=== PATIENT | female | born 1935 | race Caucasian/White ===

== ENCOUNTER 2019-11-25 14:05 | Inpatient (IN) | payer MEDICARE ==
[2019-11-25 15:17] LABS: Anisocytosis Slight; Basophils % (A) 0 %; Eosinophils % (A) 0 %; HCT 27.7 % (34.0-46.0); HGB 8.6 gm/dL (11.4-16.0); Hypochromasia Marked; Lymphocytes # (A) 0.3 k/uL (1.0-4.8); Lymphocytes % (A) 4 %; MCH 34.2 pg (25.0-35.0); MCHC 30.9 g/dL (31.0-37.0); MCV 110.7 fL (80.0-100.0); Macrocytosis Marked; Mean Platelet Volume 8.1; Monocytes # (A) 0.3 k/uL (0-1.0); Monocytes % (A) 3 %; Neutrophils # (A) 8.3 k/uL (1.3-7.7); Neutrophils % (A) 92 %; Platelet Count 241 k/uL (150-450); RDW 16.8 % (11.5-15.5)
[2019-11-25 15:31] LABS: Albumin 2.7 g/dL (3.5-5.0); Calcium 8.4 mg/dL (8.4-10.2); Partial Thromboplastin Time 23.3 sec (22.0-30.0); Potassium 4.1 mmol/L (3.5-5.1); Prothrombin Time 10.6 sec (9.0-12.0); Total Bilirubin 0.8 mg/dL (0.2-1.3); Total Protein 5.3 g/dL (6.3-8.2)
--- NOTE | 2019-11-25 15:37 | XR ---
EXAMINATION TYPE: XR chest 2V DATE OF EXAM: 11/25/2019 COMPARISON: NONE HISTORY: Weakness and shortness of breath. Generalized pain. TECHNIQUE: Frontal and lateral views of the chest are obtained. FINDINGS: The osseous structures are demineralized. Underlying levoconvex scoliosis centered upper to mid thoracic spine. Background chronic emphysematou s and suspected parenchymal changes with reticular interstitial prominence bilaterally. Increased [place] left lung base and 2 views noted. Surgical clips bilateral axillary region. Cardiomegaly with at herosclerotic and ectatic thoracic aorta causing mass effect on trachea. IMPRESSION: Chronic changes and cardiomegaly with left lower lobe acute infiltrate thought present.
[2019-11-25 16:20] LABS: Amorphous Sediment,Urine Rare /hpf; Appearance,Urine Cloudy (Clear); Bacteria,Urine Moderate /hpf; Bilirubin,Urine Negative (Negative); Blood,Urine Negative (Negative); Color,Urine Yellow; Glucose,Urine (UA) Negative (Negative); Ketones,Urine Negative (Negative); Leukocyte Esterase,Urine Moderate (Negative); Nitrite,Urine Negative (Negative); PH, Urine 5.5 (5.0-8.0); Protein,Urine Negative (Negative); RBC,Urine 1 /hpf (0-5); Specific Gravity,Urine 1.014 (1.001-1.035); Squamous Epithelial Cell,Urine 1 /hpf (0-4); Urobilinogen,Urine <2.0 mg/dL (<2.0); WBC,Urine 23 /hpf (0-5)
[2019-11-25] MEDS ORDERED: ACETAMINOPHEN TAB 325 MG TAB PO STA (16:34)
--- NOTE | 2019-11-25 16:39 | ED ---
Weakness HPI - General Chief complaint: Weakness Stated complaint: altered mental Time Seen by Provider: 11/25/19 14:10 Source: EMS Mode of arrival: EMS - History of Present Illness Initial comments: The patient is an 84 old female past medical history of atrial fibrillation and pulmonary fibrosis who presents to the emergency department with reported generalized weakness and diffuse body aches. History is provided by EMS who state that the patient was taken into [facility] on Sunday from [facility]. She was evaluated for lower extremity swelling. She was found to have a DVT in her left leg and was placed on antegrade patient. She also had a CT of her chest which was negative for PE. She was returned to [facility] with additional diagnosis of pneumonia and placed on antibiotics. She reports that she didn't like the way she was being treated at the facility and therefore left yesterday AGAINST MEDICAL ADVICE and went home. Family states that she woke up this morning was warm weak and confused than normal. EMS report that the patient's baseline is the same as when they ran on her previously on Sunday. The patient is alert and oriented 3. Denies any trauma or falls. Admits to diffuse body aches which is chronic for her state she normally takes Tylenol for it. She does admit to feeling short of breath. The patient denies any chest pain, cough or hemoptysis. No abdominal pain. No changes in her bowel or bladder habits. There are no alleviating, precipitating or modifying factors - Related Data Home Medications Medication Instructions Recorded Confirmed Apixaban [Eliquis] 2.5 mg PO BID 11/25/19 11/25/19 Ipratropium-Albuterol Nebulize 3 ml INHALATION RT-Q4H PRN 11/25/19 11/25/19 [Duoneb 0.5 mg-3 mg/3 ml Soln] Metoprolol Tartrate 25 mg PO BID 11/25/19 11/25/19 Tamsulosin HCl [Flomax] 0.4 mg PO DAILY 11/25/19 11/25/19 Previous Rx's Medication Instructions Recorded Acetaminophen Tab [Tylenol] 650 mg PO Q6HR PRN tab 11/29/19 Amiodarone [Cordarone] 200 mg PO BID #60 tab 11/29/19 Lactulose [Cephulac] 20 gm PO DAILY PRN #0 ml 11/29/19 Magnesium Hydroxide [Milk of 2,400 mg PO DAILY PRN #100 ml 11/29/19 Magnesia Concentrate] Melatonin 3 mg PO HS PRN #15 tablet 11/29/19 Ondansetron HCl [Zofran] 4 mg PO Q8H PRN #25 tab 11/29/19 Allergies Allergy/AdvReac Type Severity Reaction Status Date / Time No Known Allergies Allergy Verified 11/25/19 16:47 Review of Systems ROS Statement: Those systems with pertinent positive or pertinent negative responses have been documented in the HPI. ROS Other: All systems not noted in ROS Statement are negative. Past Medical History Past Medical History: Atrial Fibrillation, Cancer Additional Past Medical History / Comment(s): pulmonary fibrosis History of Any Multi-Drug Resistant Organisms: None Reported Additional Past Surgical History / Comment(s): left mastectomy, left femur reduction. Past Psychological History: No Psychological Hx Reported Smoking Status: Never smoker Past Alcohol Use History: None Reported Past Drug Use History: None Reported - Past Family History Brother(s) Daughter(s) Additional Family Medical History / Comment(s): 2 brothers with pulmonary fibrosis and a sister with pulmonary fibrosis General Exam Limitations: altered mental status General appearance: alert, cachectic, other (fatigued) Head exam: Present: atraumatic, normocephalic, normal inspection Eye exam: Present: normal appearance, PERRL, EOMI. Absent: scleral icterus, conjunctival injection, periorbital swelling ENT exam: Present: mucous membranes dry Respiratory exam: Present: normal lung sounds bilaterally. Absent: respiratory distress, wheezes, rales, rhonchi, stridor Cardiovascular Exam: Present: tachycardia, irregular rhythm GI/Abdominal exam: Present: soft, normal bowel sounds. Absent: distended, tenderness, guarding, rebound, rigid Extremities exam: Present: normal inspection, full ROM, normal capillary refill. Absent: tenderness, pedal edema, joint swelling, calf tenderness Neurological exam: Present: alert, CN II-XII intact Psychiatric exam: Present: flat affect Skin exam: Present: warm, pallor Course Vital Signs 11/25/19 11/25/19 11/25/19 14:07 15:45 16:30 Temperature 97.3 F L Pulse Rate 134 H 120 H 138 H Respiratory 18 181 H 18 Rate Blood Pressure 101/79 102/87 104/76 O2 Sat by Pulse 100 100 Oximetry 11/25/19 11/25/19 11/25/19 18:22 18:36 18:53 Temperature 97.3 F L Pulse Rate 114 H 100 120 H Respiratory 18 18 18 Rate Blood Pressure 75/59 81/66 91/68 O2 Sat by Pulse 100 100 100 Oximetry 11/25/19 11/25/19 11/25/19 19:42 20:12 20:41 Temperature Pulse Rate 124 H 124 H 130 H Respiratory 18 16 18 Rate Blood Pressure 75/59 78/62 96/61 O2 Sat by Pulse 98 99 100 Oximetry 11/25/19 21:08 Temperature Pulse Rate 120 H Respiratory 18 Rate Blood Pressure 93/70 O2 Sat by Pulse 98 Oximetry EKG Findings - EKG Comments: EKG Findings:: EKG demonstrates age or fibrillation with a rapid ventricular response of 136. QRS 86. QTC 391. Inverted T-wave with depression in the 4 through V6. No old EKG available for comparison Medical Decision Making - Medical Decision Making Upon arrival the patient is placed into room 7. A thorough history and physical exam was performed. Per 5 is established. The patient was given a 250 mL bolus. Laboratory studies were conducted which demonstrated a hemoglobin of 8.6. Alk phos 193. BNP elevated at 11,800. Troponin is negative. Urinalysis shows moderate leukocyte Estrace, 23 white blood cells, moderate bacteria. Coronavirus is not detected. Chest x-ray demonstrates chronic changes and cardiomegaly with a left lower lobe acute infiltrate. No signs of fluid overload. Because of this I did provide the patient with additional [address] the patient's brain was performed because families reported confusion. No acute intracranial hemorrhage or midline shift. Mild to moderate diffuse cerebral atrophy. I did perform a CT the patient's chest with contrast as the patient was recently diagnosed DVT and is on anticoagulation however does report to worsening respiratory efforts. It does not demonstrate a sign for acute parenchymal is. It does demonstrate underlying emphysematous changes and there is now cardiomegaly with mild bilateral alveolar edema. Probable central obstructing intrahepatic mass concerning for neoplasm and severe left- sided hydronephrosis. Because of these results I did perform a CT without contrast the patient's abdomen which does demonstrate moderate to severe left- sided hydronephrosis. Cirrhotic liver with multifocal central neoplasm. I discussed the patient's results with her daughter who assists in her medical decision making. She reports that her is the next reported his power of district attorney however he is 89 years old and hard of hearing. They state that the patient is a full code at this time. I did discuss results with Dr. Ortega who accepted admission for the patient. I also discussed the case with Dr. ni because of the infected urine with severe Ulysses. He does evaluate the patient emergency department. The patient continues to have A. fib with RVR. I did attempt to place her on a low-dose of Cardizem however she did have a drop in her blood pressure. Because of this the Cardizem is removed. The patient is started on 75 mL of saline per hour does have improvement in her blood pressures. The patient's heart rate does improve to the 1 teens. She will be admitted to telemetry floor. The patient remained in stable condition was transported - Lab Data Result diagrams: 11/29/19 06:51 11/29/19 06:51 Lab Results 11/25/19 11/25/19 11/25/19 Range/Units 14:43 14:55 14:55 WBC 9.0 (3.8-10.6) k/uL RBC 2.50 L (3.80-5.40) m/uL Hgb 8.6 L (11.4-16.0) gm/dL Hct 27.7 L (34.0-46.0) % MCV 110.7 H (80.0-100.0) fL MCH 34.2 (25.0-35.0) pg MCHC 30.9 L (31.0-37.0) g/dL RDW 16.8 H (11.5-15.5) % Plt Count 241 (150-450) k/uL Neutrophils % 92 % Lymphocytes % 4 % Monocytes % 3 % Eosinophils % 0 % Basophils % 0 % Neutrophils # 8.3 H (1.3-7.7) k/uL Lymphocytes # 0.3 L (1.0-4.8) k/uL Monocytes # 0.3 (0-1.0) k/uL Eosinophils # 0.0 (0-0.7) k/uL Basophils # 0.0 (0-0.2) k/uL Hypochromasia Marked Anisocytosis Slight Macrocytosis Marked A PT 10.6 (9.0-12.0) sec INR 1.0 (<1.2) APTT 23.3 (22.0-30.0) sec Sodium (137-145) mmol/L Potassium (3.5-5.1) mmol/L Chloride (98-107) mmol/L Carbon Dioxide (22-30) mmol/L Anion Gap mmol/L BUN (7-17) mg/dL Creatinine (0.52-1.04) mg/dL Est GFR (CKD-EPI)AfAm (>60 ml/min/1.73 sqM) Est GFR (CKD-EPI)NonAf (>60 ml/min/1.73 sqM) Glucose (74-99) mg/dL Plasma Lactic Acid Angelo (0.7-2.0) mmol/L Calcium (8.4-10.2) mg/dL Magnesium (1.6-2.3) mg/dL Total Bilirubin (0.2-1.3) mg/dL AST (14-36) U/L ALT (4-34) U/L Alkaline Phosphatase (38-126) U/L Creatine Kinase (30-135) U/L Troponin I (0.000-0.034) ng/mL NT-Pro-B Natriuret Pep pg/mL Total Protein (6.3-8.2) g/dL Albumin (3.5-5.0) g/dL TSH (0.465-4.680) mIU/L Urine Color Yellow Urine Appearance Cloudy H (Clear) Urine pH 5.5 (5.0-8.0) Ur Specific [place]fall 1.014 (1.001-1.035) Urine Protein Negative (Negative) Urine Glucose (UA) Negative (Negative) Urine Ketones Negative (Negative) Urine Blood Negative (Negative) Urine Nitrite Negative (Negative) Urine Bilirubin Negative (Negative) Urine Urobilinogen <2.0 (<2.0) mg/dL Ur Leukocyte Esterase Moderate H (Negative) Urine RBC 1 (0-5) /hpf Urine WBC 23 H (0-5) /hpf Ur Squamous Epith Cells 1 (0-4) /hpf Amorphous Sediment Rare H (None) /hpf Urine Bacteria Moderate H (None) /hpf Coronavirus (PCR) (Not Detectd) 05/05/20 05/05/20 05/05/20 Range/Units 14:55 14:55 14:55 WBC (3.8-10.6) k/uL RBC (3.80-5.40) m/uL Hgb (11.4-16.0) gm/dL Hct (34.0-46.0) % MCV (80.0-100.0) fL MCH (25.0-35.0) pg MCHC (31.0-37.0) g/dL RDW (11.5-15.5) % Plt Count (150-450) k/uL Neutrophils % % Lymphocytes % % Monocytes % % Eosinophils % % Basophils % % Neutrophils # (1.3-7.7) k/uL Lymphocytes # (1.0-4.8) k/uL Monocytes # (0-1.0) k/uL Eosinophils # (0-0.7) k/uL Basophils # (0-0.2) k/uL Hypochromasia Anisocytosis Macrocytosis PT (9.0-12.0) sec INR (<1.2) APTT (22.0-30.0) sec Sodium 136 L (137-145) mmol/L Potassium 4.1 (3.5-5.1) mmol/L Chloride 99 (98-107) mmol/L Carbon Dioxide 32 H (22-30) mmol/L Anion Gap 5 mmol/L BUN 41 H (7-17) mg/dL Creatinine 1.12 H (0.52-1.04) mg/dL Est GFR (CKD-EPI)AfAm 52 (>60 ml/min/1.73 sqM) Est GFR (CKD-EPI)NonAf 46 (>60 ml/min/1.73 sqM) Glucose 79 (74-99) mg/dL Plasma Lactic Acid Angelo 1.1 (0.7-2.0) mmol/L Calcium 8.4 (8.4-10.2) mg/dL Magnesium 2.0 (1.6-2.3) mg/dL Total Bilirubin 0.8 (0.2-1.3) mg/dL AST 33 (14-36) U/L ALT 21 (4-34) U/L Alkaline Phosphatase 193 H (38-126) U/L Creatine Kinase (30-135) U/L Troponin I <0.012 (0.000-0.034) ng/mL NT-Pro-B Natriuret Pep pg/mL Total Protein 5.3 L (6.3-8.2) g/dL Albumin 2.7 L (3.5-5.0) g/dL TSH 7.950 H (0.465-4.680) mIU/L Urine Color Urine Appearance (Clear) Urine pH (5.0-8.0) Ur Specific [place] (1.001-1.035) Urine Protein (Negative) Urine Glucose (UA) (Negative) Urine Ketones (Negative) Urine Blood (Negative) Urine Nitrite (Negative) Urine Bilirubin (Negative) Urine Urobilinogen (<2.0) mg/dL Ur Leukocyte Esterase (Negative) Urine RBC (0-5) /hpf Urine WBC (0-5) /hpf Ur Squamous Epith Cells (0-4) /hpf Amorphous Sediment (None) /hpf Urine Bacteria (None) /hpf Coronavirus (PCR) (Not Detectd) 11/25/19 11/25/19 11/25/19 Range/Units 14:55 14:55 16:27 WBC (3.8-10.6) k/uL RBC (3.80-5.40) m/uL Hgb (11.4-16.0) gm/dL Hct (34.0-46.0) % MCV (80.0-100.0) fL MCH (25.0-35.0) pg MCHC (31.0-37.0) g/dL RDW (11.5-15.5) % Plt Count (150-450) k/uL Neutrophils % % Lymphocytes % % Monocytes % % Eosinophils % % Basophils % % Neutrophils # (1.3-7.7) k/uL Lymphocytes # (1.0-4.8) k/uL Monocytes # (0-1.0) k/uL Eosinophils # (0-0.7) k/uL Basophils # (0-0.2) k/uL Hypochromasia Anisocytosis Macrocytosis PT (9.0-12.0) sec INR (<1.2) APTT (22.0-30.0) sec Sodium (137-145) mmol/L Potassium (3.5-5.1) mmol/L Chloride (98-107) mmol/L Carbon Dioxide (22-30) mmol/L Anion Gap mmol/L BUN (7-17) mg/dL Creatinine (0.52-1.04) mg/dL Est GFR (CKD-EPI)AfAm (>60 ml/min/1.73 sqM) Est GFR (CKD-EPI)NonAf (>60 ml/min/1.73 sqM) Glucose (74-99) mg/dL Plasma Lactic Acid Angelo (0.7-2.0) mmol/L Calcium (8.4-10.2) mg/dL Magnesium (1.6-2.3) mg/dL Total Bilirubin (0.2-1.3) mg/dL AST (14-36) U/L ALT (4-34) U/L Alkaline Phosphatase (38-126) U/L Creatine Kinase <20 L (30-135) U/L Troponin I (0.000-0.034) ng/mL NT-Pro-B Natriuret Pep 46187 pg/mL Total Protein (6.3-8.2) g/dL Albumin (3.5-5.0) g/dL TSH (0.465-4.680) mIU/L Urine Color Urine Appearance (Clear) Urine pH (5.0-8.0) Ur Specific [place]fall (1.001-1.035) Urine Protein (Negative) Urine Glucose (UA) (Negative) Urine Ketones (Negative) Urine Blood (Negative) Urine Nitrite (Negative) Urine Bilirubin (Negative) Urine Urobilinogen (<2.0) mg/dL Ur Leukocyte Esterase (Negative) Urine RBC (0-5) /hpf Urine WBC (0-5) /hpf Ur Squamous Epith Cells (0-4) /hpf Amorphous Sediment (None) /hpf Urine Bacteria (None) /hpf Coronavirus (PCR) Not Detected (Not Detectd) Disposition Clinical Impression: Atrial fibrillation with RVR, Generalized weakness, HCAP (healthcare-associated pneumonia), DVT (deep venous thrombosis), Respiratory insufficiency, CHF (congestive heart failure), Liver mass, Hydronephrosis Disposition[facility] Condition: Stable Is patient prescribed a controlled substance at d/c from ED?: No Decision to Admit Reason: Admit from EC Decision Date: 11/25/19 Decision Time: 17:16
--- NOTE | 2019-11-25 16:41 | CT ---
EXAMINATION TYPE: CT brain wo con DATE OF EXAM: 11/25/2019 HISTORY: Weakness, body aches CT DLP: 1139 mGycm. Automated Exposure Control for Dose Reduction was Utilized. TECHNIQUE: CT scan of the head is performed without contrast. COMPARISON: None. FINDINGS: There is no acute intracranial hemorrhage or midline shift identified. There is diffuse v entricular and sulcal prominence consistent with diffuse age-related cerebral atrophy. There is low- attenuation in the periventricular white matter consistent with chronic small vessel ischemic change. 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 The globes are intact and the vis ualized sinuses are clear. IMPRESSION: No acute intracranial hemorrhage or midline shift. There is mild to moderate diffuse ce rebral atrophy and moderate chronic small vessel ischemic change noted.
--- NOTE | 2019-11-25 16:52 | CT ---
EXAMINATION TYPE: CT angio chest DATE OF EXAM: 11/25/2019 COMPARISON: Chest x-ray earlier today HISTORY: Weakness, body aches CT DLP: 213.2 mGycm. Automated Exposure Control for Dose Reduction was Utilized. CONTRAST: CTA scan of the thorax is performed with IV Contrast, patient injected with 80 mL of Isovue 370, pulm onary embolism protocol. MIP Images are created on CT scanner and reviewed. FINDINGS: LUNGS: Background fairly moderate underlying chronic emphysematous change with elevated left hemidiap hragm. Small bilateral pleural effusions noted on CT less well seen on x-ray earlier today. Some cent ral groundglass opacity is felt to reflect mild underlying alveolar edema. Patchy left basilar compre ssive atelectasis is felt present. No pneumothorax bilaterally. MEDIASTINUM: There is satisfactory enhancement of the pulmonary artery and its branches, there is no CT evidence for pulmonary embolism. There are no greater than 1 cm hilar or mediastinal lymph nodes . No significant pericardial effusion is seen. Cardiomegaly with moderate to severe biatrial dilata tion. Reflux of contrast into suprahepatic IVC and draining hepatic veins suggests degree of right he art failure. Enlarged main pulmonary artery at 3.3 cm axial image 62 is felt to reflect product of un derlying pulmonary artery hypertension. OTHER: Demineralization with S-shaped scoliosis. Fairly moderate compression type fracture of L1 leve l. Visualized upper abdomen shows small amount of abdominal ascites perihepatic and perisplenic level . Visualized liver is prominent with suggestion of central irregular heterogeneous mass towards the h ilum there are axial image 140. Mild to moderate peripheral biliary dilatation is felt present. Suspe ct moderate to severe left-sided hydronephrosis partially imaged. Patient has virtually no breast tis rosanne. IMPRESSION: 1. No CT evidence for acute pulmonary embolism. 2. Fairly moderate underlying emphysematous change. Suspect CHF exacerbation and there is cardiomegal y with mild bilateral alveolar edema and small bilateral pleural effusions. Correlate clinically. 3. Probable central obstructing intrahepatic mass causing mild to moderate intrahepatic biliary dilat ation. Mild upper abdominal ascites. Correlate clinically. Neoplasm suspected. Further investigation with multiphase contrast-enhanced CT is advised. 4. Suspect moderate to severe left-sided hydronephrosis. Correlate clinically.
[2019-11-25] MEDS ORDERED: cefTRIAXone IN SWFI 1,000 MG/10 ML SYRINGE IVP STA (17:07)
[2019-11-25] MEDS ORDERED: AZITHROMYCIN 500 MG in SODIUM CHLORIDE 0.9% 250 ML IVPB STA (17:15)
[2019-11-25] MEDS ORDERED: DILTIAZEM 125 MG in SODIUM CHLORIDE 0.9% 100 ML IV SCH (17:15)
[2019-11-25] MEDS ORDERED: NALOXONE 0.4 MG/ML 1 ML VIAL IV PRN (17:20)
[2019-11-25] MEDS ORDERED: IPRATROPIUM-ALBUTEROL 3 ML NEB INHALATION PRN (17:26)
--- NOTE | 2019-11-25 18:31 | CT ---
EXAMINATION TYPE: CT abdomen pelvis wo con DATE OF EXAM: 11/25/2019 HISTORY: Hydronephrosis, liver lesion. Abnormal CT. CT DLP: 387.9 mGycm. Automated Exposure Control for Dose Reduction was Utilized. TECHNIQUE: CT scan of the abdomen and pelvis is performed without oral or IV contrast. COMPARISON: CTA chest earlier today FINDINGS: Within the limitations of a non-contrast study, the following observations are made. LUNG BASES: Please refer to same day CTA chest report for complete details about the lung bases. LIVER/GB: Liver has lobulated peripheral nodular contour suggesting underlying cirrhosis. Mild to mod erate left-sided extra hepatic biliary dilatation with overall heterogeneity in at least small intrah epatic hypodense masses suspected right hepatic lobe near maximum image 23. Suspect obstructing centr al intrahepatic mass causing left-sided biliary dilatation. Roughly 1.5 cm calcification near clotilde h epatis of uncertain etiology as gallbladder not identified. Common bile duct mildly dilated at 12 to 13 mm coronal image 46 just before the ampulla. Some central biliary heterogeneous hypodense tissue s uspicious for tumor coronal image 46 seen proximal to this. PANCREAS: No significant abnormality is seen. SPLEEN: No significant abnormality is seen. ADRENALS: No significant abnormality is seen. KIDNEYS: Excretion right kidney from recent CTA chest study. Absent excretion left kidney with modera te to severe hydronephrosis and hydroureter up to distal ureter level where there is abrupt change ne ar axial image 53 and 54 without obstructing stone seen. BOWEL: Suboptimal evaluation bowel without enteric contrast. Stomach poorly distended and thus subopt imally evaluated. No suspicious small or large bowel dilatation. Sigmoid colonic diverticulosis. GENITAL ORGANS: Anteverted uterus. Small to moderate amount of free fluid in pelvis axial image 61 fo r reference. LYMPH NODES: No greater than 1cm abdominal or pelvic lymph nodes are appreciated. OSSEOUS STRUCTURES: Metallic hardware left proximal femur level is partially imaged. Moderate to tamara re joint space loss in both hips. Demineralization is present. Levoconvex scoliosis. Moderate to tamara re chronic compression type fracture L1 level. Mild Chronic compression fracture L3 level. Severe dis c space narrowing lumbosacral junction. Multilevel facet arthropathy mid to lower lumbar spine. OTHER: Mild abdominal and mesenteric ascites. Atherosclerotic ectatic abdominal aorta. 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 Confirmation of moderate to severe left-sided hydronephrosis. Absent excretion left kidney noted. Etiology uncertain as there is abrupt transition from moderate to severe hydroureter or distal ureter level without obstructing stone clearly seen. Further workup is advised. 2. Suspected cirrhotic liver with multifocal central neoplasm causing left-sided biliary dilatation. Primary biliary carcinoma should be considered. Further workup advised.
[2019-11-25] MEDS ORDERED: SODIUM CHLORIDE 0.9% 250 ML IV SCH (19:00)
[2019-11-25] MEDS ORDERED: SODIUM CHLORIDE 0.9% 500 ML 500 ML IV ONE (20:37)
[2019-11-25] MEDS ORDERED: NA PHOS,M-B/NA PHOS,DI-BA 133 ML ENEMA RECTAL PRN (20:46)
[2019-11-25] MEDS ORDERED: CALCIUM CARBONATE 500 MG CHEWABLE PO PRN (20:46)
[2019-11-25] MEDS ORDERED: LACTULOSE 20 GM/30 ML CUP PO PRN (20:46)
[2019-11-25] MEDS ORDERED: ONDANSETRON 4 MG/2 ML VIAL IVP PRN (20:46)
[2019-11-25] MEDS ORDERED: MAGNESIUM HYDROXIDE 2,400 MG/10 ML CUP PO PRN (20:46)
--- NOTE | 2019-11-25 20:50 | P.GSCN ---
History of Present Illness Consult date: 11/25/19 Reason for Consult: Left hydroureteronephrosis History of present illness: the patient is an 84-year-old female who was taken to the emergency room for evaluation by her family due to increasing weakness. The history is from a discussion with the patient and her emergency room physician. The [facility] to increasing weakness. She apparently had a deep venous thrombosis involving one of her legs and has been anticoagulated. She also recently developed a pneumonia. She says she's had a poor appetite for weeks. Her main complaint is aching per which is present in her arms, legs and abdomen. she denies any specific abdominal or flank pain. She has noted no recent change in her voiding pattern. She has had intermittent incontinence over the last month and says that she's been in diapers for the last 2 weeks. She denies any dysuria or gross hematuria. She does not have a history of recurrent urinary tract infection or urolithiasis. When seen in the emergency room she was noted to have a white blood count of 9000. BUN/creatinine were 41/1.12. Her urinalysis showed 23 white cells 1 red cells and moderate bacteria. It was negative for nitrite. Computed tomography scan of the abdomen and pelvis with IV contrast showed a normally functioning right kidney. The left kidney showed no excretion and the left renal pelvis and ureter were dilated down to the region of the pelvic brim. No calculus was noted at that location. There was also evidence of cirrhosis and possible tumors within the liver. I was asked to see the patient due to the hydronephrosis. The patient has no previous imaging of her kidneys done at this hospital. She has not had any previous abdominal surgeries. Review of Systems - Constitutional Reports chronic pain, Reports fatigue, Reports poor appetite, Reports weakness, Reports weight loss, Denies chills, Denies fever - Cardiovascular Reports irregular heart beat, Denies high blood pressure - Respiratory Denies cough - Gastrointestinal Reports as per HPI, Denies change in bowel habits, Denies vomiting - Genitourinary Genitourinary: Reports urge incontinence, Denies dysuria, Denies hematuria Past Medical History Past Medical History: Atrial Fibrillation, Cancer (left breast 30 years ago) Additional Past Medical History / Comment(s): pulmonary fibrosis History of Any Multi-Drug Resistant Organisms: None Reported Additional Past Surgical History / Comment(s): left mastectomy, left femur reduction. Past Psychological History: No Psychological Hx Reported Smoking Status: Never smoker Past Alcohol Use History: None Reported Past Drug Use History: None Reported - Past Family History Brother(s) Daughter(s) Additional Family Medical History / Comment(s): 2 brothers with pulmonary fibrosis and a sister with pulmonary fibrosis Medications and Allergies Home Medications Medication Instructions Recorded Confirmed Type Apixaban [Eliquis] 2.5 mg PO BID 11/25/19 11/25/19 History Diltiazem HCl [Diltiazem HCl 24Hr 180 mg PO DAILY 11/25/19 11/25/19 History ER (CD)] Furosemide [Lasix] 20 mg PO DAILY 11/25/19 11/25/19 History Ipratropium-Albuterol Nebulize 3 ml INHALATION RT-Q4H PRN 11/25/19 11/25/19 His tory [Duoneb 0.5 mg-3 mg/3 ml Soln] Metoprolol Tartrate 25 mg PO BID 11/25/19 11/25/19 History Potassium Chloride ER [K-Dur 10] 10 meq PO DAILY 11/25/19 11/25/19 History Tamsulosin HCl [Flomax] 0.4 mg PO DAILY 11/25/19 11/25/19 History Allergies Allergy/AdvReac Type Severity Reaction Status Date / Time No Known Allergies Allergy Verified 11/25/19 16:47 Surgical - Exam Vital Signs Temp Pulse Resp BP 97.3 F L 134 H 18 101/79 11/25/19 14:07 11/25/19 14:07 11/25/19 14:07 11/25/19 14:07 - General well developed, moderate distress, cachectic, chronically ill - ENT no hearing loss - Neck no masses, no lymphadectomy - Abdomen Abdomen: soft, non tender, no organomegaly Hernia: none - Genitourinary normal external genitalia Results - Labs 11/25/19 14:55 11/25/19 14:55 Abnormal Lab Results - Last 24 Hours (Table) 11/25/19 11/25/19 11/25/19 Range/Units 14:43 14:55 14:55 RBC 2.50 L (3.80-5.40) m/uL Hgb 8.6 L (11.4-16.0) gm/dL Hct 27.7 L (34.0-46.0) % MCV 110.7 H (80.0-100.0) fL MCHC 30.9 L (31.0-37.0) g/dL RDW 16.8 H (11.5-15.5) % Neutrophils # 8.3 H (1.3-7.7) k/uL Lymphocytes # 0.3 L (1.0-4.8) k/uL Macrocytosis Marked A Sodium 136 L (137-145) mmol/L Carbon Dioxide 32 H (22-30) mmol/L BUN 41 H (7-17) mg/dL Creatinine 1.12 H (0.52-1.04) mg/dL Alkaline Phosphatase 193 H (38-126) U/L Creatine Kinase (30-135) U/L Total Protein 5.3 L (6.3-8.2) g/dL Albumin 2.7 L (3.5-5.0) g/dL TSH 7.950 H (0.465-4.680) mIU/L Urine Appearance Cloudy H (Clear) Ur Leukocyte Esterase Moderate H (Negative) Urine WBC 23 H (0-5) /hpf Amorphous Sediment Rare H (None) /hpf Urine Bacteria Moderate H (None) /hpf 05/05/20 Range/Units 14:55 RBC (3.80-5.40) m/uL Hgb (11.4-16.0) gm/dL Hct (34.0-46.0) % MCV (80.0-100.0) fL MCHC (31.0-37.0) g/dL RDW (11.5-15.5) % Neutrophils # (1.3-7.7) k/uL Lymphocytes # (1.0-4.8) k/uL Macrocytosis Sodium (137-145) mmol/L Carbon Dioxide (22-30) mmol/L BUN (7-17) mg/dL Creatinine (0.52-1.04) mg/dL Alkaline Phosphatase (38-126) U/L Creatine Kinase <20 L (30-135) U/L Total Protein (6.3-8.2) g/dL Albumin (3.5-5.0) g/dL TSH (0.465-4.680) mIU/L Urine Appearance (Clear) Ur Leukocyte Esterase (Negative) Urine WBC (0-5) /hpf Amorphous Sediment (None) /hpf Urine Bacteria (None) /hpf Diabetes panel 11/25/19 Range/Units 14:55 Sodium 136 L (137-145) mmol/L Potassium 4.1 (3.5-5.1) mmol/L Chloride 99 (98-107) mmol/L Carbon Dioxide 32 H (22-30) mmol/L BUN 41 H (7-17) mg/dL Creatinine 1.12 H (0.52-1.04) mg/dL Glucose 79 (74-99) mg/dL Calcium 8.4 (8.4-10.2) mg/dL AST 33 (14-36) U/L ALT 21 (4-34) U/L Alkaline Phosphatase 193 H (38-126) U/L Total Protein 5.3 L (6.3-8.2) g/dL Albumin 2.7 L (3.5-5.0) g/dL Thyroid panel 11/25/19 Range/Units 14:55 TSH 7.950 H (0.465-4.680) mIU/L Calcium panel 11/25/19 Range/Units 14:55 Calcium 8.4 (8.4-10.2) mg/dL Albumin 2.7 L (3.5-5.0) g/dL Pituitary panel 11/25/19 Range/Units 14:55 Sodium 136 L (137-145) mmol/L Potassium 4.1 (3.5-5.1) mmol/L Chloride 99 (98-107) mmol/L Carbon Dioxide 32 H (22-30) mmol/L BUN 41 H (7-17) mg/dL Creatinine 1.12 H (0.52-1.04) mg/dL Glucose 79 (74-99) mg/dL Calcium 8.4 (8.4-10.2) mg/dL TSH 7.950 H (0.465-4.680) mIU/L Adrenal panel 11/25/19 Range/Units 14:55 Sodium 136 L (137-145) mmol/L Potassium 4.1 (3.5-5.1) mmol/L Chloride 99 (98-107) mmol/L Carbon Dioxide 32 H (22-30) mmol/L BUN 41 H (7-17) mg/dL Creatinine 1.12 H (0.52-1.04) mg/dL Glucose 79 (74-99) mg/dL Calcium 8.4 (8.4-10.2) mg/dL Total Bilirubin 0.8 (0.2-1.3) mg/dL AST 33 (14-36) U/L ALT 21 (4-34) U/L Alkaline Phosphatase 193 H (38-126) U/L Total Protein 5.3 L (6.3-8.2) g/dL Albumin 2.7 L (3.5-5.0) g/dL Assessment and Plan (1) Hydroureteronephrosis Narrative/Plan: The source of the patient's left hydroureteronephrosis is unclear. I personally reviewed her computed tomography scan of the abdomen and pelvis. There is moderate to severe dilation of the left ureter down to the region of the pelvic brim but there is no evidence of calculus in this location. This may be chronic. It is possible that the ureter is obstructed due to an extrinsic cause. The patient may have hepatic metastasis or a primary hepatic malignancy and it is possible that the left ureteral obstruction is somehow related to this. The patient's renal function is fairly well preserved and I do not feel that she has a urinary tract infection at this time. She has no specific left-sided abdominal pain and in view of her age and general debilitated condition I'm not sure that proceeding with cystoscopy and left retrograde is indicated as it is unlikely that she would tolerate any abdominal surgery if extrinsic compression of the ureter from a mass was confirmed. I will try and contact her personal physician tomorrow and see if he has any previous imaging of the abdomen for comparison. Current Visit: Yes Status: Acute Code(s): N13.30 - UNSPECIFIED HYDRONEPHROSIS SNOMED Code(s): 64800841
[2019-11-25] MEDS: ACETAMINOPHEN TAB 325 MG TAB PO PRN (21:41)
[2019-11-25] MEDS: METOPROLOL TARTRATE 25 MG TAB PO SCH (21:42)
[2019-11-25] MEDS: APIXABAN 2.5 MG TABLET PO SCH (21:42)
[2019-11-25] MEDS: SODIUM CHLORIDE 0.9% 1,000 ML IV SCH (21:42)
[2019-11-26 03:36] LABS: Anisocytosis Slight; Basophils % (A) 0 %; Eosinophils % (A) 0 %; HCT 23.2 % (34.0-46.0); Hypochromasia Marked; Lymphocytes # (A) 0.3 k/uL (1.0-4.8); Lymphocytes % (A) 4 %; MCH 34.1 pg (25.0-35.0); MCHC 30.6 g/dL (31.0-37.0); MCV 111.6 fL (80.0-100.0); Mean Platelet Volume 7.9; Monocytes # (A) 0.3 k/uL (0-1.0); Monocytes % (A) 4 %; Neutrophils # (A) 6.6 k/uL (1.3-7.7); Neutrophils % (A) 92 %; Platelet Count 189 k/uL (150-450); RBC 2.08 m/uL (3.80-5.40); RDW 17.2 % (11.5-15.5); WBC 7.2 k/uL (3.8-10.6)
[2019-11-26 03:37] LABS: HGB 7.1 gm/dL (11.4-16.0)
[2019-11-26 03:38] LABS: Macrocytosis Marked
[2019-11-26 03:47] LABS: Calcium 7.4 mg/dL (8.4-10.2)
[2019-11-26 04:37] LABS: Potassium 4.1 mmol/L (3.5-5.1)
[2019-11-26] MEDS: ACETAMINOPHEN TAB 325 MG TAB PO PRN ×2 (04:40→17:49)
[2019-11-26 06:34] LABS: Anisocytosis Slight; HCT 22.7 % (34.0-46.0); Hypochromasia Marked; MCH 34.4 pg (25.0-35.0); MCV 111.1 fL (80.0-100.0); Mean Platelet Volume 7.5; Platelet Count 202 k/uL (150-450); RBC 2.04 m/uL (3.80-5.40); RDW 17.2 % (11.5-15.5); WBC 8.4 k/uL (3.8-10.6)
[2019-11-26 06:41] LABS: Macrocytosis Marked
[2019-11-26] MEDS ORDERED: TAMSULOSIN 0.4 MG CAP.ER.24H PO SCH (09:00)
[2019-11-26] MEDS ORDERED: POTASSIUM CHLORIDE ER 10 MEQ TAB.ER.PRT PO SCH (09:00)
[2019-11-26] MEDS: SODIUM CHLORIDE 0.9% 1,000 ML IV SCH ×2 (10:58→17:51)
[2019-11-26] MEDS: METOPROLOL TARTRATE 25 MG TAB PO SCH ×3 (12:37→21:15)
[2019-11-26] MEDS: APIXABAN 2.5 MG TABLET PO SCH ×2 (12:37→21:15)
--- NOTE | 2019-11-26 13:57 | P.CRDCN ---
History of Present Illness History of present illness: This is Lily Cortez PA-C scribing on behalf of Dr. Sharma The patient was interviewed and examined by Dr. Sharma ER notes reviewed HPI Patient is an 84-year-old female with a history significant for atrial fibrillation who presented with complaints of generalized weakness and body aches. Patient was apparently recently taken to [facility] on Sunday from [facility] where she was found to have a DVT and pneumonia. According to the note, CT PE was negative. She apparently left the facility AGAINST MEDICAL ADVICE and went home. Family reports she woke up more weak and confused brought her in again for evaluation. Vital signs upon arrival patient is afebrile, puls e in the 130s, blood pressure 101/79, respirations 18, oxygen saturation 100% on 2 L nasal cannula. EKG upon arrival shows atrial fibrillation with RVR, rate 136, T-wave inversions laterally and inferiorly. Chest x-ray shows chronic changes with left lower lobe acute infiltrate. Brain CT shows no acute intracranial hemorrhage or midline shift, mild to moderate diffuse cerebral atrophy and moderate chronic small vessel ischemic change. Chest CT shows no evidence for PE, underlying emphysematous change, mild bilateral alveolar edema and small bilateral pleural effusions, central obstructing intrahepatic mass, moderate to severe left-sided hydronephrosis. CT of the abdomen and pelvis confirms moderate to severe left-sided hydronephrosis, no obstructing stone clearly seen, cirrhotic liver with multifocal central neoplasm causing left- sided biliary dilatation. Troponin negative 3, BNP 11,800, TSH 7.9. Patient was started on Cardizem drip for atrial fibrillation with RVR however she became hypotensive therefore it was stopped. She remains in atrial fibrillation with rates in the 100s. She is lying in bed flat comfortably. ROS: No fevers, chills or rigors, no cough, phlegm or expectoration, no nausea, vomiting or diarrhea, no hematuria, dysuria, Positive for body aches no strokes or seizures, no skin lesions. EXAMINATION: Patient is afebrile, pulse in the 90s- 100s, respirations 19, blood pressure 97/74, oxygen saturation 90% on [address] Sharma examined the patient Patient is lying flat comfortably, in no acute distress Lung exam reveals crackles at the right base heart irregular no JVD no edema REVIEW OF LABS, ECG & MEDICAL DATA WBC 8.4, hemoglobin 7.0, platelets 202, potassium 4.1, BUN 38, creatinine 0.95 Troponin negative 3 BNP 11,800 TSH 7.95 Coronavirus not detected IMPRESSION / ASSESSMENT: #1 complaints of generalized weakness and body aches #2 atrial fibrillation with RVR, rates in the 100s, anticoagulated with eliquis #3 shortness of breath, mild pulmonary edema and small left pleural effusions on chest CT, elevated BNP, possible mild CHF, clinically she is able to lie flat comfortably #4 recently diagnosed DVT, on anticoagulation with eliquis #5 left-sided hydronephrosis #6 hepatic mass #7 left lower lobe pneumonia, on antibiotics #8 anemia #9 abnormal TSH PLAN: Obtain 2-D echo and Doppler studies to assess cardiac structure and function Increase metoprolol to 25 mg 3 times a day for rate control hold off on lasix as the patient has been hypotensive Further recommendations to follow based on the clinical course Past Medical History Past Medical History: Atrial Fibrillation, Cancer Additional Past Medical History / Comment(s): pulmonary fibrosis History of Any Multi-Drug Resistant Organisms: None Reported Additional Past Surgical History / Comment(s): left mastectomy, left femur reduction. Past Anesthesia/Blood Transfusion Reactions: No Reported Reaction Past Psychological History: No Psychological Hx Reported Smoking Status: Never smoker Past Alcohol Use History: None Reported Past Drug Use History: None Reported - Past Family History Brother(s) Daughter(s) Additional Family Medical History / Comment(s): 2 brothers with pulmonary fibrosis and a sister with pulmonary fibrosis Medications and Allergies Home Medications Medication Instructions Recorded Confirmed Type Apixaban [Eliquis] 2.5 mg PO BID 11/25/19 11/25/19 History Diltiazem HCl [Diltiazem HCl 24Hr 180 mg PO DAILY 11/25/19 11/25/19 History ER (CD)] Furosemide [Lasix] 20 mg PO DAILY 11/25/19 11/25/19 History Ipratropium-Albuterol Nebulize 3 ml INHALATION RT-Q4H PRN 11/25/19 11/25/19 History [Duoneb 0.5 mg-3 mg/3 ml Soln] Metoprolol Tartrate 25 mg PO BID 11/25/19 11/25/19 History Potassium Chloride ER [K-Dur 10] 10 meq PO DAILY 11/25/19 11/25/19 History Tamsulosin HCl [Flomax] 0.4 mg PO DAILY 11/25/19 11/25/19 History Allergies Allergy/AdvReac Type Severity Reaction Status Date / Time No Known Allergies Allergy Verified 11/25/19 16:47 Physical Exam Vitals: Vital Signs Temp Pulse Pulse Resp BP BP Pulse Ox 11/26/19 04:00 97.9 F 99 19 97/74 100 11/26/19 00:00 97.9 F 97 19 103/61 100 11/25/19 21:08 120 H 18 93/70 98 11/25/19 20:41 130 H 18 96/61 100 11/25/19 20:12 124 H 16 78/62 99 11/25/19 19:42 124 H 18 75/59 98 11/25/19 18:53 120 H 18 91/68 100 11/25/19 18:36 100 18 81/66 100 11/25/19 18:22 97.3 F L 114 H 18 75/59 100 11/25/19 16:30 138 H 18 104/76 100 11/25/19 15:45 120 H 181 H 102/87 100 11/25/19 14:07 97.3 F L 134 H 18 101/79 Intake and Output 11/25/19 11/26/19 11/26/19 22:59 06:59 14:59 Intake Total 7.083 120 Balance 7.083 120 Intake: Intake, IV Titration 7.083 Amount Diltiazem 125 mg In 7.083 Sodium Chloride 0.9% 100 ml @ 5 MG/HR 5 mls/hr IV .Q24H [facility] Rx#:[id number] Oral 120 Other: # Voids 2 1 Weight 47.627 kg 48.5 kg Results 11/26/19 06:05 11/26/19 02:16 Cardiac Enzymes 11/25/19 11/25/19 11/25/19 Range/Units 14:55 14:55 20:43 AST 33 (14-36) U/L Troponin I <0.012 <0.012 (0.000-0.034) ng/mL 11/26/19 Range/Units 02:16 AST (14-36) U/L Troponin I <0.012 (0.000-0.034) ng/mL Coagulation 11/25/19 Range/Units 14:55 PT 10.6 (9.0-12.0) sec APTT 23.3 (22.0-30.0) sec CBC 11/25/19 11/26/19 11/26/19 Range/Units 14:55 02:16 06:05 WBC 9.0 7.2 8.4 (3.8-10.6) k/uL RBC 2.50 L 2.08 L 2.04 L (3.80-5.40) m/uL Hgb 8.6 L 7.1 L D 7.0 L (11.4-16.0) gm/dL Hct 27.7 L 23.2 L 22.7 L (34.0-46.0) % Plt Count 241 189 202 (150-450) k/uL Comprehensive Metabolic Panel 11/25/19 11/26/19 Range/Units 14:55 02:16 Sodium 136 L 136 L (137-145) mmol/L Potassium 4.1 4.1 (3.5-5.1) mmol/L Chloride 99 105 (98-107) mmol/L Carbon Dioxide 32 H 26 (22-30) mmol/L BUN 41 H 38 H (7-17) mg/dL Creatinine 1.12 H 0.95 (0.52-1.04) mg/dL Glucose 79 67 L (74-99) mg/dL Calcium 8.4 7.4 L (8.4-10.2) mg/dL AST 33 (14-36) U/L ALT 21 (4-34) U/L Alkaline Phosphatase 193 H (38-126) U/L Total Protein 5.3 L (6.3-8.2) g/dL Albumin 2.7 L (3.5-5.0) g/dL Current Medications Generic Name Dose Route Start Last Admin Trade Name Freq PRN Reason Stop Dose Admin Acetaminophen 650 mg 11/25/19 17:20 11/26/19 04:40 Tylenol Tab PO 650 mg Q6HR PRN Administration Mild Pain or Fever > 100.5 Albuterol/Ipratropium 3 ml 11/25/19 17:26 Duoneb 0.5 Mg-3 Mg/3 Ml Soln INHALATION RT-Q4H PRN Shortness Of Breath Apixaban 2.5 mg 11/25/19 21:00 11/25/19 21:42 Eliquis PO 2.5 mg BID SONYA Administration Calcium Carbonate/Glycine 1,000 mg 11/25/19 20:46 Tums PO Q4HR PRN Dyspepsia Sodium Chloride 1,000 mls @ 100 mls/hr 11/25/19 20:45 11/25/19 21:42 Saline 0.9% IV 100 mls/hr .Q10H SONYA Administration Lactulose 20 gm 11/25/19 20:46 Cephulac PO DAILY PRN Constipation Magnesium Hydroxide 2,400 mg 11/25/19 20:46 Milk Of Magnesia PO DAILY PRN Constipation Melatonin 3 mg 11/25/19 20:46 Melatonin PO HS PRN Insomnia Metoprolol Tartrate 25 mg 11/25/19 21:00 11/25/19 21:42 Lopressor PO 25 mg BID SONYA Administration Naloxone HCl 0.2 mg 11/25/19 17:20 Narcan IV Q2M PRN Opioid Reversal Ondansetron HCl 4 mg 11/25/19 20:46 Zofran IVP Q8HR PRN Nausea And Vomiting Sodium Biphosphate/Sodium Phosphate 133 ml 11/25/19 20:46 Fleet Adult RECTAL ONCE PRN Constipation Intake and Output 11/25/19 11/26/19 11/26/19 22:59 06:59 14:59 Intake Total 7.083 120 Balance 7.083 120 Intake: Intake, IV Titration 7.083 Amount Diltiazem 125 mg In 7.083 Sodium Chloride 0.9% 100 ml @ 5 MG/HR 5 mls/hr IV .Q24H S[facility] Rx#:[id number] Oral 120 Other: # Voids 2 1 Weight 47.627 kg 48.5 kg 11/26/19 06:05 11/26/19 02:16
--- NOTE | 2019-11-26 21:08 | P.HPIM ---
History of Present Illness H&P Date: 11/26/19 Chief Complaint: Weakness History of presenting complaint: ER physician notes: The patient is an 84 old female past medical history of atrial fibrillation and pulmonary fibrosis who presents to the emergency department with reported generalized weakness and diffuse body aches. History is provided by EMS who state that the patient was taken into [facility] on Sunday from [facility]. She was evaluated for lower extremity swelling. She was found to have a DVT in her left leg and was placed on antegrade patient. She also had a CT of her chest which was negative for PE. She was returned to [facility] with additional diagnosis of pneumonia and placed on antibiotics. She reports that she didn't like the way she was being treated at the facility and therefore left yesterday AGAINST MEDICAL ADVICE and went home. Family states that she woke up this morning was warm weak and confused than normal. EMS report that the patient's baseline is the same as when they ran on her previously on Sunday. The patient is alert and oriented 3. Denies any trauma or falls. Admits to diffuse body aches which is chronic for her state she normally takes Tylenol for it. She does admit to feeling short of breath. The patient denies any chest pain, cough or hemoptysis. No abdominal pain. No changes in her bowel or bladder habits. There are no alleviating, precipitating or modifying factors. Today-patient somewhat sketchy about the history. Says that she been feeling short of breath. A bit weak. Appetite is good. Minimal cough. Review of systems: GEN.: Tired, denies fever or chills EYES: None HEENT: None NECK: None RESPIRATORY: Some shortness of breath. Slight cough. No sputum. CARDIOVASCULAR: None GASTROINTESTINAL: None GENITOURINARY: None MUSCULOSKELETAL: Some joint pains LYMPHATICS: None HEMATOLOGICAL: None PSYCHIATRY: But forgetful NEUROLOGICAL: None Past no history to include: Atrial fibrillation, pulmonary fibrosis, breast cancer Social history: Denies smoking, or alcohol. Family history: 2 brothers and one sister all had pulmonary fibrosis Physical examination: VITAL SIGNS: 97.3, 114, 18, 75/59, 100% on 2 L-upon presentation GENERAL: BMI 20.9, laying in bed, awake tired. EYES: Pupils equal. Conjunctiva palel. HEENT: External appearance of nose and ears normal, oral cavity grossly normal. NECK: JVD not raised; masses not palpable. HEART: First and second heart sounds are normal; no edema. LUNGS: Respiratory rate normal; decreased breath sounds. ABDOMEN: Soft, nontender, liver spleen not palpable, no masses palpable. PSYCH: Patient's able answer some questionsl. MUSCULOSKELETAL: Evidence of OA especially in the hands NEUROLOGICAL: Cranial nerves grossly intact; no facial asymmetry, power and sensation grossly intact. LYMPHATICS: No lymph nodes palpable in the axilla and neck INVESTIGATIONS, reviewed in the clinical context: White count 9 hemoglobin 8.6 platelets 241 potassium 4.1 bun 41 creatinine 1.12 ProBNP 72817 albumin 2.7 TSH 7.9 UA positive for leukoesterase, WBC COVID-19 PCR-not detected Chest x-ray film personally reviewed by me-patchy infiltrates Computed tomography scan of the kqtia-dsif-nk-moderate diffuse cerebral atrophy Chest CTA to 5 cm changes, elevated left diaphragm compressive atelectasis no PE, significant pericardial effusion, cardiomegaly, moderate to severe left- sided hydronephrosis, central obstructing intrahepatic mass causing mi [id number] intrahepatic biliary dilatation. Assessment: -Cognitive impairment no clubbing underlying late onset Alzheimer's dementia -Elevated left hemidiaphragm -Significant pericardial effusion with cardiomegaly -Moderate to severe left-sided hydronephrosis -Obstructing intrahepatic mass with intrahepatic biliary dilatation -Acute UTI possibly cystitis -Moderate protein calorie malnutrition patient muscle mass and decrease of the low albumin -Suspect congestive heart failure -Possible pneumonia we'll, for gram-negative organism Plan: 2-D echo to be done. Consultation to cardiology. Also get a pulmonary consultation and also urology consultation. Continue with ceftriaxone. Other m edications to continue. Also get oncology consultation. Discussed with the patient. Follow Past Medical History Past Medical History: Atrial Fibrillation, Cancer Additional Past Medical History / Comment(s): pulmonary fibrosis History of Any Multi-Drug Resistant Organisms: None Reported Additional Past Surgical History / Comment(s): left mastectomy, left femur reduction. Past Anesthesia/Blood Transfusion Reactions: No Reported Reaction Past Psychological History: No Psychological Hx Reported Smoking Status: Never smoker Past Alcohol Use History: None Reported Past Drug Use History: None Reported - Past Family History Brother(s) Daughter(s) Additional Family Medical History / Comment(s): 2 brothers with pulmonary fibrosis and a sister with pulmonary fibrosis Medications and Allergies Home Medications Medication Instructions Recorded Confirmed Type Apixaban [Eliquis] 2.5 mg PO BID 11/25/19 11/25/19 History Diltiazem HCl [Diltiazem HCl 24Hr 180 mg PO DAILY 11/25/19 11/25/19 History ER (CD)] Furosemide [Lasix] 20 mg PO DAILY 11/25/19 11/25/19 History Ipratropium-Albuterol Nebulize 3 ml INHALATION RT-Q4H PRN 11/25/19 11/25/19 History [Duoneb 0.5 mg-3 mg/3 ml Soln] Metoprolol Tartrate 25 mg PO BID 11/25/19 11/25/19 History Potassium Chloride ER [K-Dur 10] 10 meq PO DAILY 11/25/19 11/25/19 History Tamsulosin HCl [Flomax] 0.4 mg PO DAILY 11/25/19 11/25/19 History Allergies Allergy/AdvReac Type Severity Reaction Status Date / Time No Known Allergies Allergy Verified 11/25/19 16:47 Physical Exam Vitals: Vital Signs Temp Pulse Pulse Resp BP BP Pulse Ox 11/26/19 04:00 97.9 F 99 19 97/74 100 11/26/19 00:00 97.9 F 97 19 103/61 100 11/25/19 21:08 120 H 18 93/70 98 11/25/19 20:41 130 H 18 96/61 100 11/25/19 20:12 124 H 16 78/62 99 11/25/19 19:42 124 H 18 75/59 98 11/25/19 18:53 120 H 18 91/68 100 11/25/19 18:36 100 18 81/66 100 11/25/19 18:22 97.3 F L 114 H 18 75/59 100 11/25/19 16:30 138 H 18 104/76 100 11/25/19 15:45 120 H 181 H 102/87 100 11/25/19 14:07 97.3 F L 134 H 18 101/79 Intake and Output 11/25/19 11/26/19 11/26/19 22:59 06:59 14:59 Intake Total 7.083 120 Balance 7.083 120 Intake: Intake, IV Titration 7.083 Amount Diltiazem 125 mg In 7.083 Sodium Chloride 0.9% 100 ml @ 5 MG/HR 5 mls/hr IV .Q24H [facility] Rx#:[id number] Oral 120 Other: # Voids 2 1 Weight 47.627 kg 48.5 kg Results CBC & Chem 7: 11/26/19 06:05 11/26/19 02:16 Labs: Abnormal Lab Results - Last 24 Hours (Table) 11/25/19 11/25/19 11/25/19 Range/Units 14:43 14:55 14:55 RBC 2.50 L (3.80-5.40) m/uL Hgb 8.6 L (11.4-16.0) gm/dL Hct 27.7 L (34.0-46.0) % MCV 110.7 H (80.0-100.0) fL MCHC 30.9 L (31.0-37.0) g/dL RDW 16.8 H (11.5-15.5) % Neutrophils # 8.3 H (1.3-7.7) k/uL Lymphocytes # 0.3 L (1.0-4.8) k/uL Macrocytosis Marked A Sodium 136 L (137-145) mmol/L Carbon Dioxide 32 H (22-30) mmol/L BUN 41 H (7-17) mg/dL Creatinine 1.12 H (0.52-1.04) mg/dL Glucose (74-99) mg/dL Calcium (8.4-10.2) mg/dL Alkaline Phosphatase 193 H (38-126) U/L Creatine Kinase (30-135) U/L Total Protein 5.3 L (6.3-8.2) g/dL Albumin 2.7 L (3.5-5.0) g/dL TSH 7.950 H (0.465-4.680) mIU/L Urine Appearance Cloudy H (Clear) Ur Leukocyte Esterase Moderate H (Negative) Urine WBC 23 H (0-5) /hpf Amorphous Sediment Rare H (None) /hpf Urine Bacteria Moderate H (None) /hpf 11/25/19 11/26/19 11/26/19 Range/Units 14:55 02:16 02:16 RBC 2.08 L (3.80-5.40) m/uL Hgb 7.1 L D (11.4-16.0) gm/dL Hct 23.2 L (34.0-46.0) % MCV 111.6 H (80.0-100.0) fL MCHC 30.6 L (31.0-37.0) g/dL RDW 17.2 H (11.5-15.5) % Neutrophils # (1.3-7.7) k/uL Lymphocytes # 0.3 L (1.0-4.8) k/uL Macrocytosis Marked A Sodium 136 L (137-145) mmol/L Carbon Dioxide (22-30) mmol/L BUN 38 H (7-17) mg/dL Creatinine (0.52-1.04) mg/dL Glucose 67 L (74-99) mg/dL Calcium 7.4 L (8.4-10.2) mg/dL Alkaline Phosphatase (38-126) U/L Creatine Kinase <20 L (30-135) U/L Total Protein (6.3-8.2) g/dL Albumin (3.5-5.0) g/dL TSH (0.465-4.680) mIU/L Urine Appearance (Clear) Ur Leukocyte Esterase (Negative) Urine WBC (0-5) /hpf Amorphous Sediment (None) /hpf Urine Bacteria (None) /hpf 11/26/19 Range/Units 06:05 RBC 2.04 L (3.80-5.40) m/uL Hgb 7.0 L (11.4-16.0) gm/dL Hct 22.7 L (34.0-46.0) % MCV 111.1 H (80.0-100.0) fL MCHC (31.0-37.0) g/dL RDW 17.2 H (11.5-15.5) % Neutrophils # (1.3-7.7) k/uL Lymphocytes # (1.0-4.8) k/uL Macrocytosis Marked A Sodium (137-145) mmol/L Carbon Dioxide (22-30) mmol/L BUN (7-17) mg/dL Creatinine (0.52-1.04) mg/dL Glucose (74-99) mg/dL Calcium (8.4-10.2) mg/dL Alkaline Phosphatase (38-126) U/L Creatine Kinase (30-135) U/L Total Protein (6.3-8.2) g/dL Albumin (3.5-5.0) g/dL TSH (0.465-4.680) mIU/L Urine Appearance (Clear) Ur Leukocyte Esterase (Negative) Urine WBC (0-5) /hpf Amorphous Sediment (None) /hpf Urine Bacteria (None) /hpf Microbiology - Last 24 Hours (Table) 11/25/19 14:43 Urine Culture - Preliminary Urine,Catheterized
[2019-11-26] MEDS: MELATONIN 3 MG TABLET PO PRN (21:15)
[2019-11-27] MEDS: APIXABAN 2.5 MG TABLET PO SCH ×2 (08:27→20:07)
[2019-11-27] MEDS: METOPROLOL TARTRATE 25 MG TAB PO SCH ×3 (08:27→20:06)
[2019-11-27] MEDS: ACETAMINOPHEN TAB 325 MG TAB PO PRN ×2 (08:27→20:06)
[2019-11-27 09:22] VITALS: BMI 18.1
--- NOTE | 2019-11-27 12:13 | CONS ---
CONSULTATION PULMONARY/CRITICAL CARE CONSULTATION: DATE OF SERVICE: 11/27/2019 REASON FOR CONSULTATION: Abnormal CT scan and chest x-ray. This is a very frail 84-year-old female who apparently presents to the emergency department via EMS on November 24. She apparently has a history of chronic atrial fibrillation and possibly pulmonary fibrosis. She apparently presents to the emergency room with complaints of generalized weakness and diffuse body aches. She apparently was initially seen at [facility] and resides at [facility]. The patient apparently was found to have a DVT in her left leg. The CT scan of the chest was negative for PE. She was returned to the [facility] with additional possible diagnosis of pneumonia and placed on antibiotics. More recently, prior to this admission, she was confused. EMS assessed her. She was evaluated in our ER on November 24. Please see the ER lory. I am consulted currently because of an abnormal CT scan which showed no evidence of PE. It showed primarily cardiomegaly and bilateral effusions consistent with heart failure as well as some interstitial edematous changes and emphysematous changes as well. Currently, the patient is not on any supplemental oxygen. She is receiving saline IV at 20 mL an hour. She appears in no distress. Denies any cough or wheezing. Denies any fever, chills. She denies being short of breath. . HOME MEDICATIONS: Apparently include Eliquis, Cardizem, Lasix, DuoNeb, metoprolol, potassium chloride, and Flomax. ALLERGIES: Denied. MEDICAL HISTORY: Apparently positive for atrial fibrillation, breast cancer, possible pulmonary fibrosis, and possible CHF. SURGICAL HISTORY: Includes left mastectomy, left femur surgery and some other minor procedures. SOCIAL HISTORY: Negative for tobacco, alcohol or illicit drug use. FAMILY HISTORY: Positive for two brothers who from pulmonary fibrosis and a sister with pulmonary fibrosis. I am not sure that she has ever been diagnosed with pulmonary fibrosis. REVIEW OF SYSTEMS: CONSTITUTIONAL: Weakness. NEUROLOGIC: Negative. HEENT: Negative. CARDIOVASCULAR: Negative. PULMONARY: Negative. GI: Negative. : Negative. RHEUMATOLOGIC: Negative. IMMUNOLOGIC: Negative. ENDOCRINOLOGIC: Negative. DERMATOLOGIC: Negative. Again, she has no particular complaints. Current vital signs include a temperature of 97.6, heart rate 100, respiratory rate 18, blood pressure 100/72 mean 81, saturations are 95% on room air and 100% on 2 L. She appears in no acute distress. There is no evidence of any conversational dyspnea or use of accessory muscles. HEENT: Examination is grossly unremarkable. NECK: Supple, full range of motion. There is some mild neck vein distention. No adenopathy. CARDIOVASCULAR: Examination reveals regular rhythm and rate. Heart rate 100 beats per minute. Heart sounds are distant. S1, S2 normal. LUNGS: Reveal some bibasilar crackles. No wheezes or rhonchi. ABDOMEN: Soft. EXTREMITIES: Intact. Minimal edema. SKIN: Without rash. NEUROLOGIC: Examination is brief but nonfocal. LABS: Reviewed. White count 8.4, hemoglobin 7, hematocrit 22.7, platelet count 202,000, PT, INR and PTT normal. Sodium 136, potassium 4.1, chloride 105, CO2 is 26, anion gap is 5. BUN and creatinine were 38 and 0.95. Alkaline phosphatase was 193. CK less than 20. Troponin less than 0.012. N terminal proBNP nearly 12,000. TSH 7.950. COVID-19 testing was negative. Urine is apparently positive for Gram-negative bacilli. Urinalysis showed it to be positive for leukocyte esterase with 23 WBCs and moderate bacteria. A chest x-ray shows some chronic emphysematous changes and some reticular interstitial prominence potentially consistent with pulmonary fibrosis. There is also cardiomegaly and appears to be small bilateral effusions. The brain CT showed nothing acute. Chest CT done for pulmonary embolism was negative for PE. There is some emphysematous changes and suspected CHF changes with cardiomegaly, alveolar edema and bilateral small effusions. In addition, there was a probable central obstructing intrahepatic mass causing [id number] intrahepatic biliary dilatation and mild upper abdominal ascites and neoplasm was suspected. There was also left-sided hydronephrosis. An abdominal, pelvic CT scan was done. It confirmed moderate to severe left- sided hydronephrosis and the liver was suspected to be cirrhotic with multifocal central neoplasm causing left-sided biliary dilatation. Primary biliary carcinoma was suspected. Current medications are reviewed. She is basically on Tylenol, Eliquis, DuoNeb, lactulose, magnesium, melatonin, metoprolol, Narcan, and Zofran. ASSESSMENT: 1. Abnormal CT angiogram suggestive of a couple different things including upper lobe emphysematous changes, possible underlying interstitial fibrosis, and changes consistent with congestive heart failure. 2. 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 3. Left-sided hydronephrosis. 4. History of atrial fibrillation. 5. Previous left mastectomy for breast cancer. 6. Lifelong nonsmoker. 7. Recent diagnosis of left leg deep venous thrombosis. 8. Vague recent diagnosis of pneumonia. PLAN: The patient is not complaining of being short of breath. She is not on any supplemental oxygen. I believe her chest findings are the minor issue here. Obviously, it appears that she may have a cholangiocarcinoma. That will have to be evaluated. She is a very frail woman. She is 84, but looks much older than her stated age. Additional recommendations and suggestions are forthcoming. Palliative care and/or hospice referral might be considered. Additional recommendations and suggestions are forthcoming. MMODL / IJN: [id number] / MTDD
--- NOTE | 2019-11-27 12:44 | P.CONS ---
History of Present Illness - Reason for Consult Consult date: 11/27/19 liver lesion Requesting physician: Jacobo Ortega - Chief Complaint weakness - History of Present Illness Mrs. De La Rosa is a very pleasant 84-year-old female patient who we've been asked to see in regards to suspicious liver mass with hydronephrosis. Her past medical history consists of a-fib, CHF, pulmonary fibrosis, currently admitted for weakness, AMS. She was seen in the last 2 weeks at [facility] for LLE swelling, found to have DVT, no PE, and [facility] and treatment for pneumonia. Family removed pt from [facility] AGAINST MEDICAL ADVICE. At home, patient's family was having difficulty with her and pt is admitted with symptoms as stated above. On admit,patient had a brain CT without contrast for altered mental status,that was negative for an acute process. Patient was having some difficulty breathing, CT of the chest performed was negative for PE, underlying emphysema, suspect CHF, probable obstructing intrahepatic mass causing biliary dilation, moderate to severe left-sided hydronephrosis. CT of the abdomen and pelvis done to further evaluate the liver and kidney, confirmed moderate to severe left-sided hydronephrosis, etiology uncertain, suspect cirrhotic liver with a central neoplasm causing the left-sided biliary dilation. patient denied fevers, chills, oral irritation, chest pain, changes in her breathing, abdominal pain, nausea, vomiting, acute changes in bowel or bladder habits, she is positive for some weight loss, she's not sure how much weight, she says the swelling in her legs is better, she is denying any pain currently. Patient does have a personal history of breast cancer, diagnosed on the left, at least 30 years ago, treated with bilateral mastectomy and sentinel lymph node dissection, no chemotherapy, radiation. Review of Systems 14 point ROS is negative Past Medical History Past Medical History: Atrial Fibrillation, Cancer Additional Past Medical History / Comment(s): pulmonary fibrosis History of Any Multi-Drug Resistant Organisms: None Reported Additional Past Surgical History / Comment(s): left mastectomy, left femur reduction. Past Anesthesia/Blood Transfusion Reactions: No Reported Reaction Past Psychological History: No Psychological Hx Reported Smoking Status: Never smoker Past Alcohol Use History: None Reported Past Drug Use History: None Reported - Past Family History Brother(s) Daughter(s) Additional Family Medical History / Comment(s): 2 brothers with pulmonary fibrosis and a sister with pulmonary fibrosis Medications and Allergies Home Medications Medication Instructions Recorded Confirmed Type Apixaban [Eliquis] 2.5 mg PO BID 11/25/19 11/25/19 History Diltiazem HCl [Diltiazem HCl 24Hr 180 mg PO DAILY 11/25/19 11/25/19 History ER (CD)] Furosemide [Lasix] 20 mg PO DAILY 11/25/19 11/25/19 History Ipratropium-Albuterol Nebulize 3 ml INHALATION RT-Q4H PRN 11/25/19 11/25/19 History [Duoneb 0.5 mg-3 mg/3 ml Soln] Metoprolol Tartrate 25 mg PO BID 11/25/19 11/25/19 History Potassium Chloride ER [K-Dur 10] 10 meq PO DAILY 11/25/19 11/25/19 History Tamsulosin HCl [Flomax] 0.4 mg PO DAILY 11/25/19 11/25/19 History Allergies Allergy/AdvReac Type Severity Reaction Status Date / Time No Known Allergies Allergy Verified 11/25/19 16:47 Physical Exam Vitals: Vital Signs Temp Pulse Resp BP Pulse Ox 11/27/19 08:00 97.6 F 113 H 18 100/72 100 11/27/19 04:00 98 F 102 H 16 96/72 100 11/26/19 22:50 98 F 100 16 95/62 95 11/26/19 20:00 97.6 F 97 17 85/60 97 11/26/19 16:25 98.2 F 113 H 16 106/77 100 11/26/19 11:30 97.3 F L 112 H 18 101/72 100 Intake and Output 11/26/19 11/27/19 11/27/19 22:59 06:59 14:59 Intake Total 240 120 Balance 240 120 Intake: Oral 240 120 Other: # Voids 3 3 # Bowel Movements 1 Weight 42 kg 42 kg - Constitutional General appearance: cooperative, no acute distress, thin - EENT Eyes: anicteric sclerae, EOMI ENT: hard of hearing, normal oropharynx - Neck Neck: no lymphadenopathy - Respiratory Respiratory: bilateral: CTA - Cardiovascular Rhythm: regular Heart sounds: normal: S1, S2 leg Peripheral Edema: bilateral: Trace - Gastrointestinal General gastrointestinal: no absent bowel sounds, no decreased bowel sounds, no distended, no hepatomegaly, no hyperactive bowel sounds, normal bowel sounds, no organomegaly, no rigid, no scaphoid, soft, no splenomegaly, no tenderness, no umbilical hernia, no ventral hernia - Neurologic Neurologic: CNII-XII intact - Musculoskeletal Musculoskeletal: generalized weakness, strength equal bilaterally - Psychiatric Psychiatric: A&O x's 3, appropriate affect, intact judgment & insight Results CBC & Chem 7: 11/26/19 06:05 11/26/19 02:16 Labs: Microbiology - Last 24 Hours (Table) 11/25/19 14:43 Urine Culture - Preliminary Urine,Catheterized Gram Neg Bacilli Gram Neg Bacilli#2 11/25/19 14:55 Blood Culture - Preliminary Blood No Growth after [address] scan - abdomen: report reviewed CT Scan - head: report reviewed CT scan - pelvis: report reviewed Assessment and Plan (1) Macrocytic anemia Current Visit: Yes Status: Acute Priority: High Code(s): D53.9 - NUTRITIONAL ANEMIA, UNSPECIFIED SNOMED Code(s): 97804280 (2) Hydronephrosis Current Visit: Yes Status: Acute Priority: High Code(s): N13.30 - UNSPECIFIED HYDRONEPHROSIS SNOMED Code(s): 83760489 (3) Liver mass Current Visit: Yes Status: Acute Priority: High Code(s): R16.0 - HEPATOMEGALY, NOT ELSEWHERE CLASSIFIED SNOMED Code(s): 381505645 Plan: Macrocytic anemia workup ordered. Patient is not requiring transfusion at this time. Reviewed Urology notes. Renal function improved since admit and hydration/bolus. MRI of the liver to further evaluate the mass. Could be related to chronic liver congestion from CHF leading to scarring, cirrhosis. AFP ordered. A low or normal result will not be helpful but, significantly elevated results would be more suggestive of an underling process and biopsy will be reasonable We will follow-up on testing, further tests as needed. Doctor attests: I performed a history and physical examination of this patient, developed impression and plan of care, discussed with dictator. I agree with dictators note, documented as a scribe.
[2019-11-27] MEDS: DIAZEPAM 2 MG TAB PO PRN ×2 (13:38→23:00)
--- NOTE | 2019-11-27 14:53 | P.PN ---
Subjective This is Lily Cortez PA-C dictating a progress note on this patient The patient was interviewed and examined by me as well as by Dr. Sharma Case discussed with Dr. Sharma and he agrees with the plan of care HPI/interval history Patient is a 84-year-old female with a history of atrial fibrillation who presented with complaints of generalized weakness and body aches. She was found to be in atrial fibrillation with RVR. Chest CT shows no evidence for PE, underlying emphysematous change, mild bilateral alveolar edema and small bilat eral pleural effusions, central obstructing intrahepatic mass, moderate to severe left-sided hydronephrosis. CT of the abdomen and pelvis confirms moderate to severe left-sided hydronephrosis, no obstructing stone clearly seen, cirrhotic liver with multifocal central neoplasm causing left-sided biliary dilatation. Oncology has been consulted. Yesterday we increased her metoprolol to 25 mg 3 times daily and her rates are still in the 100s. She is still hypotensive. Patient seen and examined resting comfortably lying almost flat in the recliner. She complains that she is tired and fatigued. Denies any chest pain, shortness of breath or dizziness. States she is interested in physical therapy in order to get stronger. EXAMINATION Patient is afebrile, pulse in the 100, respirations 18, blood pressure 100/72, oxygen saturation on her percent on 2 L nasal cannula Patient seen and examined lying in the recliner, no acute distress Lungs with few scattered crackles bilaterally Heart is irregular, tachycardic, systolic murmur audible Extremities warm no edema REVIEW OF LABS, ECG No new labs today IMPRESSION / ASSESSMENT: #1 complaints of generalized weakness and body aches #2 atrial fibrillation with RVR, rates in the 100s, anticoagulated with eliquis #3 shortness of breath, mild pulmonary edema and small left pleural effusions on chest CT, elevated BNP, possible mild CHF, clinically she is able to lie flat comfortably, denies any shortness of breath #4 recently diagnosed DVT, on anticoagulation with eliquis #5 left-sided hydronephrosis #6 hepatic mass, oncology has been consulted #7 left lower lobe pneumonia, on antibiotics #8 anemia #9 abnormal TSH #10 history of pulmonary fibrosis PLAN: Add low-dose digoxin for rate control Continue current dose of metoprolol, Hold off on increasing metoprolol any further due to hypotension Monitor BMP Echocardiogram has been ordered, still awaiting the results Objective - Vital Signs Vital signs: Vital Signs Temp 97.6 F 11/27/19 08:00 Pulse 113 H 11/27/19 08:00 Resp 18 11/27/19 08:00 BP 100/72 11/27/19 08:00 Pulse Ox 100 11/27/19 08:00 Intake & Output 11/26/19 11/27/19 11/27/19 18:59 06:59 18:59 Intake Total 600 0 120 Balance 600 0 120 Weight 42 kg 42 kg Intake: Oral 600 0 120 Other: # Voids 2 3 1 # Bowel Movements 1 - Labs CBC & Chem 7: 11/26/19 06:05 11/26/19 02:16 Labs: Abnormal Lab Results - Last 24 Hours (Table) 11/27/19 Range/Units 12:11 Retic Count 5.0 H (0.5-2.0) % Microbiology - Last 24 Hours (Table) 11/25/19 14:43 Urine Culture - Preliminary Urine,Catheterized Gram Neg Bacilli Gram Neg Bacilli#2 11/25/19 14:55 Blood Culture - Preliminary Blood No Growth after 24 hours
--- NOTE | 2019-11-27 17:05 | P.PN ---
Progress Note - Text Progress Note Date: 11/27/19 Chief Complaint: Weakness History of presenting complaint: ER physician notes: The patient is an 84 old female past medical history of atrial fibrillation and pulmonary fibrosis who presents to the emergency department with reported generalized weakness and diffuse body aches. History is provided by EMS who state that the patient was taken into [facility] on Sunday [facility] She was evaluated for lower extremity swelling. S he was found to have a DVT in her left leg and was placed on antegrade patient. She also had a CT of her chest which was negative for PE. She was returned to [facility] with additional diagnosis of pneumonia and placed on antibiotics. She reports that she didn't like the way she was being treated at the facility and therefore left yesterday AGAINST MEDICAL ADVICE and went home. Family states th at she woke up this morning was warm weak and confused than normal. EMS report that the patient's baseline is the same as when they ran on her previously on Sunday. The patient is alert and oriented 3. Denies any trauma or falls. Admits to diffuse body aches which is chronic for her state she normally takes Tylenol for it. She does admit to feeling short of breath. The patient denies any chest pain, cough or hemoptysis. No abdominal pain. No changes in her bowel or bladder habits. There are no alleviating, precipitating or modifying factors. Today-tired. Laying bed. Did tolerate some diet. Review of systems: Was done for constitutional, cardiovascular, GI, pulmonary. relevant finding as above Active Medications Acetaminophen (Tylenol Tab) 650 mg PO Q6HR PRN PRN Reason: Mild Pain or Fever > 100.5 Last Admin: 11/27/19 08:27 Dose: 650 mg Documented by: Albuterol/Ipratropium (Duoneb 0.5 Mg-3 Mg/3 Ml Soln) 3 ml INHALATION RT-Q4H PRN PRN Reason: Shortness Of Breath Apixaban (Eliquis) 2.5 mg PO BID SONYA Last Admin: 11/27/19 08:27 Dose: 2.5 mg Documented by: Calcium Carbonate/Glycine (Tums) 1,000 mg PO Q4HR PRN PRN Reason: Dyspepsia Diazepam (Valium) 1 mg PO Q30M PRN PRN Reason: Anxiety Stop: 06/06/20 13:12 Last Admin: 11/27/19 13:38 Dose: 1 mg Documented by: Digoxin (Lanoxin) 125 mcg PO DAILY COUNTS INCLUDE 234 BEDS AT THE [facility] Lactulose (Cephulac) 20 gm PO DAILY PRN PRN Reason: Constipation Magnesium Hydroxide (Milk Of Magnesia) 2,400 mg PO DAILY PRN PRN Reason: Constipation Melatonin (Melatonin) 3 mg PO HS PRN PRN Reason: Insomnia Last Admin: 11/26/19 21:15 Dose: 3 mg Documented by: Metoprolol Tartrate (Lopressor) 25 mg PO TID SONYA Last Admin: 11/27/19 08:27 Dose: 25 mg Documented by: Naloxone HCl (Narcan) 0.2 mg IV Q2M PRN PRN Reason: Opioid Reversal Ondansetron HCl (Zofran) 4 mg IVP Q8HR PRN PRN Reason: Nausea And Vomiting Sodium Biphosphate/Sodium Phosphate (Fleet Adult) 133 ml RECTAL ONCE PRN PRN Reason: Constipation Physical examination: VITAL SIGNS: 97.6, 113, 18, 100/72, 100% on 2 L GENERAL: laying in bed, awake tired. EYES: Pupils equal. Conjunctiva palel. HEENT: External appearance of nose and ears normal, oral cavity grossly normal. NECK: JVD not raised; masses not palpable. HEART: First and second heart sounds are normal; no edema. LUNGS: Respiratory rate normal; decreased breath sounds. ABDOMEN: Soft, nontender, liver spleen not palpable, no masses palpable. PSYCH: Patient's able answer some questionsl. MUSCULOSKELETAL: Evidence of OA especially in the hands INVESTIGATIONS, reviewed in the clinical context: White count 9 hemoglobin 8.6 platelets 241 potassium 4.1 bun 41 creatinine 1.12 ProBNP 60512 albumin 2.7 TSH 7.9 UA positive for leukoesterase, WBC COVID-19 PCR-not detected Chest x-ray film personally reviewed by me-patchy infiltrates Computed tomography scan of the yvvzf-sbfv-fo-moderate diffuse cerebral atrophy Chest CTA to 5 cm changes, elevated left diaphragm compressive atelectasis no PE, significant pericardial effusion, cardiomegaly, moderate to severe left- sided hydronephrosis, central obstructing intrahepatic mass causing [id number]-[id number] intrahepatic biliary dilatation. Assessment: -Cognitive impairment-underlying late onset Alzheimer's dementia -Elevated left hemidiaphragm -Significant pericardial effusion with cardiomegaly -Moderate to severe left-sided hydronephrosis -Obstructing intrahepatic mass with intrahepatic biliary dilatation -Acute UTI possibly cystitis -Moderate protein calorie malnutrition patient muscle mass and decrease of the l ow albumin -Acute on chronic congestive heart failure exacerbation, pending 2-D echo -Possible pneumonia , gram-negative organism -Pulmonary fibrosis -Emphysema -Recent left leg DVT with no PE Plan: 2-D echo -results pending. Liver MRI ordered. Patient to continue on DuoNeb, eliquis, digoxin-started today, Lopressor,.
[2019-11-27] MEDS: DIGOXIN 125 MCG TAB PO SCH (17:25)
--- NOTE | 2019-11-27 18:40 | MR ---
EXAMINATION TYPE: MR liver wo/w con DATE OF EXAM: 11/27/2019 COMPARISON: CT dated 11/25/2019 HISTORY: Liver Mass CONTRAST: Standard multiplanar, multisequence MRI departmental protocol utilizing 6 mL intravenous Gadavist elham olinium contrast. FINDINGS: The exam is markedly suboptimal given extensive patient motion as the patient is claustroph obic. There are numerous T2 hyperintense hepatic lesions throughout the liver that demonstrate abnormal enh ancement most compatible with metastatic lesions. There is a large mass at the inferior margin of the liver abutting the hepatic flexure that is extremely poorly delineated on coronal imaging. On postco ntrast series 801 images 255 through 170 this amorphous mass is demonstrated at the expected location of the gallbladder fossa. There is extensive intrahepatic and extrahepatic biliary ductal dilatation with narrowing of the central biliary system from stricture. There is background hepatocellular dise ase as there is a nodular contour of the liver. There is overall delayed enhancement near the hepatit is with delayed phase imaging is compared to early phase imaging. The calcified structure on CT at th e medial aspect of the right hepatic lobe is redemonstrated and remains indeterminant. There is narrowing of the gastric antrum and duodenum with mass effect from the liver. There is narro wing of the distal common bile duct likely from stricture but proximal dilatation measuring up to 1.2 cm. Severe hydronephrosis is redemonstrated on the left with extrarenal pelvis on the right. Nonenhancing right renal cysts in bilateral subcentimeter too small to accurately characterize lesions are seen. There are partially visualized at least moderate pleural effusions and cardiomegaly. There is tortuos ity of the descending thoracic aorta and aneurysmal dilatation measuring 3.0 cm. Aneurysmal dilatatio n of the upper abdominal aorta measures up to 3.8 cm with eccentric atheromatous plaquing. The spleen and adrenal glands are grossly unremarkable. IMPRESSION: 1. Extremely limited exam given patient motion as the patient was claustrophobic. 2. Large central hepatic mass is poorly measured and demonstrates delayed enhancement concerning for cholangiocarcinoma with marked intrahepatic and extra hepatic biliary ductal dilatation and central b iliary stricture. There is also suspicion for extrahepatic extension into the mesentery and towards t he adjacent hepatic flexure. Fistulization of the tumor with the bowel is possible. Less likely consi deration is for hepatocellular carcinoma as there is underlying hepatocellular disease. Numerous narcisa tional hepatic lesions are scattered throughout the hepatic parenchyma with enhancement compatible wi th metastasis. 3. Severe left hydronephrosis is redemonstrated as seen on the prior CT. 4. Aneurysmal dilatation of the descending thoracic aorta and visualized upper abdominal aorta.
[2019-11-27 18:50] LABS: Protein, Total 4.8 g/dL (6.2-8.2)
[2019-11-27] MEDS: MELATONIN 3 MG TABLET PO PRN (20:07)
[2019-11-28 08:36] LABS: Calcium 7.9 mg/dL (8.4-10.2)
[2019-11-28] MEDS: METOPROLOL TARTRATE 25 MG TAB PO SCH ×3 (08:36→20:49)
[2019-11-28] MEDS: APIXABAN 2.5 MG TABLET PO SCH ×2 (08:36→20:49)
[2019-11-28] MEDS: DIGOXIN 125 MCG TAB PO SCH (08:36)
[2019-11-28 11:11] LABS: Free Kappa Lt Chain Qnt, Serum 2.43 mg/dL (0.33-1.94)
[2019-11-28 11:14] LABS: Albumin 2.6 g/dL (3.5-5.0); Total Bilirubin 0.6 mg/dL (0.2-1.3); Total Protein 5.3 g/dL (6.3-8.2)
--- NOTE | 2019-11-28 13:02 | P.PN ---
Subjective Progress Note Date: 11/28/19 On 11/28/2019 patient seen in follow-up on selective care unit. She is resting comfortably in bed, appears to be in no acute distress, room air pulse ox is 94%. Hemodynamically patient is stable, afebrile, no specific complaints, lung sounds are clear to auscultation, no rhonchi or wheezing, CT angiogram of the chest showed emphysematous changes, possible underlying interstitial fibrosis and changes consistent with congestive heart failure. Clinically patient denies any shortness of breath, no lower extremity edema. Patient is undergoing evaluation for a finding of obstructive intrahepatic mass with intrahepatic biliary dilatation, and moderate to severe left-sided hydronephrosis. Objective - Vital Signs Vital signs: Vital Signs Temp 98.1 F 11/27/19 17:20 Pulse 124 H 11/28/19 08:00 Resp 16 11/28/19 12:00 BP 91/74 11/28/19 08:00 Pulse Ox 94 L 11/28/19 08:00 Intake & Output 11/27/19 11/28/19 11/28/19 18:59 06:59 18:59 Intake Total 330 240 Balance 330 240 Weight 42 kg 41.6 kg Intake: Oral 330 240 Other: # Voids 1 2 # Bowel Movements 0 - Exam GENERAL EXAM: Alert, very pleasant, 84-year-old white female, on room air comfortable in no apparent distress. HEAD: Normocephalic/atraumatic. EYES: Normal reaction of pupils, equal size. Conjunctiva pink, sclera white. NOSE: Clear with pink turbinates. THROAT: No erythema or exudates. NECK: No masses, no JVD, no thyroid enlargement, no adenopathy. CHEST: No chest wall deformity. Symmetrical expansion. LUNGS: Equal air entry with no crackles, wheeze, rhonchi or dullness. CVS: Regular rate and rhythm, normal S1 and S2, no gallops, no murmurs, no rubs ABDOMEN: Soft, nontender. No hepatosplenomegaly, normal bowel sounds, no guarding or rigidity. EXTREMITIES: No clubbing, no edema, no cyanosis, 2+ pulses and upper and lower extremities. MUSCULOSKELETAL: Muscle strength and tone normal. SPINE: No scoliosis or deformity SKIN: No rashes CENTRAL NERVOUS SYSTEM: Alert and oriented -3. No focal deficits, tone is normal in all 4 extremities. PSYCHIATRIC: Alert and oriented -3. Appropriate affect. Intact judgment and insight. - Labs CBC & Chem 7: 11/26/19 06:05 11/28/19 06:00 Labs: Abnormal Lab Results - Last 24 Hours (Table) 11/26/19 11/28/19 Range/Units 14:55 06:00 Chloride 108 H (98-107) mmol/L BUN 28 H (7-17) mg/dL Glucose 122 H (74-99) mg/dL Calcium 7.9 L (8.4-10.2) mg/dL AST 43 H (14-36) U/L Alkaline Phosphatase 196 H (38-126) U/L Total Protein 5.3 L (6.3-8.2) g/dL Total Protein (PEP) 4.8 L (6.2-8.2) g/dL Albumin 2.6 L (3.5-5.0) g/dL Free [place] LC, Quant 2.43 H (0.33-1.94) mg/dL Microbiology - Last 24 Hours (Table) 11/25/19 14:55 Blood Culture - Preliminary Blood No Growth after 48 hours 11/25/19 14:43 Urine Culture - Final Urine,Catheterized Klebsiella pneumoniae Escherichia coli Assessment and Plan Plan: Assessment: #1. Abnormal CT angiogram of the chest, showing emphysematous changes, possibility of underlying interstitial fibrosis and changes consistent with congestive heart failure #2. 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 Left-sided hydronephrosis #4. History of atrial fibrillation #5. History of left breast mastectomy for breast cancer #6. Lifelong nonsmoker #7. Recent diagnosis of left leg DVT #8. Recent history of pneumonia Plan: From pulmonary perspective patient is doing well, no worsening dyspnea, she is on room air, no pulmonary complaints, no fever or chills. Undergoing additional workup for possibility of cholangiocarcinoma based on the CT of the abdomen and pelvis. From pulmonary perspective patient could be considered for discharge she is cleared by medical oncology hospitalist service I performed a history & physical examination of the patient and discussed their management with my nurse practitioner, Gali Olivares. I reviewed the nurse practitioner's note and agree with the documented findings and plan of care. L cassandra sounds are positive for diminished breath sounds throughout the lung leyva. The findings and the impression was discussed with the patient. I attest to the documentation by the nurse practitioner. Time with Patient: Less than 30
[2019-11-28] MEDS: ACETAMINOPHEN TAB 325 MG TAB PO PRN (13:14)
[2019-11-28 13:22] LABS: Anisocytosis Slight; Basophils % (A) 0 %; Eosinophils # (A) 0.1 k/uL (0-0.7); Eosinophils % (A) 1 %; HCT 25.7 % (34.0-46.0); HGB 7.9 gm/dL (11.4-16.0); Hypochromasia Marked; Lymphocytes # (A) 0.4 k/uL (1.0-4.8); Lymphocytes % (A) 4 %; MCH 34.4 pg (25.0-35.0); MCHC 30.9 g/dL (31.0-37.0); MCV 111.2 fL (80.0-100.0); Macrocytosis Marked; Mean Platelet Volume 8.4; Monocytes # (A) 0.5 k/uL (0-1.0); Monocytes % (A) 5 %; Neutrophils # (A) 8.3 k/uL (1.3-7.7); Neutrophils % (A) 90 %; Platelet Count 270 k/uL (150-450); Poikilocytosis Slight; RBC 2.31 m/uL (3.80-5.40); RDW 17.3 % (11.5-15.5); WBC 9.3 k/uL (3.8-10.6)
--- NOTE | 2019-11-28 13:54 | P.PN ---
Subjective Progress Note Date: 11/28/19 Principal diagnosis: Probable metastatic malignancy MRI of the liver was completed and revealed large hepatic mass consistent with a cholangio metastatic malignancy, given her age/performance and the diagnosis most likely resulting in an incurable situation Dr. Hinkle did speak with her daughter and the patient and they have refused further diagnostic work-up with tissue biopsy and plan for home hospice which is resonable at this time. Objective - Vital Signs Vital signs: Vital Signs Temp 98.1 F 11/27/19 17:20 Pulse 119 H 11/28/19 12:00 Resp 16 11/28/19 12:00 BP 87/57 11/28/19 12:00 Pulse Ox 100 11/28/19 12:00 Intake & Output 11/27/19 11/28/19 11/28/19 18:59 06:59 18:59 Intake Total 330 240 Balance 330 240 Weight 42 kg 41.6 kg Intake: Oral 330 240 Other: # Voids 1 2 # Bowel Movements 0 - Exam - Constitutional General appearance: cooperative, no acute distress, thin - EENT Eyes: anicteric sclerae, EOMI ENT: hard of hearing, normal oropharynx - Neck Neck: no lymphadenopathy - Respiratory Respiratory: bilateral: CTA - Cardiovascular Rhythm: regular Heart sounds: normal: S1, S2 leg Peripheral Edema: bilateral: Trace - Gastrointestinal General gastrointestinal: no absent bowel sounds, no decreased bowel sounds, no distended, no hepatomegaly, no hyperactive bowel sounds, normal bowel sounds, no organomegaly, no rigid, no scaphoid, soft, no splenomegaly, no tenderness, no umbilical hernia, no ventral hernia - Neurologic Neurologic: CNII-XII intact - Musculoskeletal Musculoskeletal: generalized weakness, strength equal bilaterally - Psychiatric Psychiatric: A&O x's 3, appropriate affect, intact judgment & insight - Labs CBC & Chem 7: 11/28/19 12:01 11/28/19 06:00 Labs: Abnormal Lab Results - Last 24 Hours (Table) 11/26/19 11/28/19 11/28/19 Range/Units 14:55 06:00 12:01 RBC 2.31 L (3.80-5.40) m/uL Hgb 7.9 L (11.4-16.0) gm/dL Hct 25.7 L (34.0-46.0) % MCV 111.2 H (80.0-100.0) fL MCHC 30.9 L (31.0-37.0) g/dL RDW 17.3 H (11.5-15.5) % Neutrophils # 8.3 H (1.3-7.7) k/uL Lymphocytes # 0.4 L (1.0-4.8) k/uL Macrocytosis Marked A Chloride 108 H (98-107) mmol/L BUN 28 H (7-17) mg/dL Glucose 122 H (74-99) mg/dL Calcium 7.9 L (8.4-10.2) mg/dL AST 43 H (14-36) U/L Alkaline Phosphatase 196 H (38-126) U/L Total Protein 5.3 L (6.3-8.2) g/dL Total Protein (PEP) 4.8 L (6.2-8.2) g/dL Albumin 2.6 L (3.5-5.0) g/dL Free [place] LC, Quant 2.43 H (0.33-1.94) mg/dL Microbiology - Last 24 Hours (Table) 11/25/19 14:55 Blood Culture - Preliminary Blood No Growth after 48 hours 11/25/19 14:43 Urine Culture - Final Urine,Catheterized Klebsiella pneumoniae Escherichia coli Assessment and Plan Plan: CT scan - abdomen: report reviewed CT Scan - head: report reviewed CT scan - pelvis: report reviewed Assessment and Plan (1) Macrocytic anemia Current Visit: Yes Status: Acute Priority: High Code(s): D53.9 - NUTRITIONAL ANEMIA, UNSPECIFIED SNOMED Code(s): 32154287 - Work up currently still pending. Await B12, Folate, and Iron studies. Retic - inc of 5%, Alk Phos - Incr, TSH 7.9. FLC wnl (2) Hydronephrosis Current Visit: Yes Status: Acute Priority: High Code(s): N13.30 - UNSPECIFIED HYDRONEPHROSIS SNOMED Code(s): 31675778 (3) Liver mass Current Visit: Yes Status: Acute Priority: High Code(s): R16.0 - HEPATOMEGALY, NOT ELSEWHERE CLASSIFIED SNOMED Code(s): 579654565 - Reviewed MRI: Large centrally located hepatic mass which is concerning for malignancy will need to assess patient and families wiliness to pursue aggressive diagnostics, if further diagnostics are wanted then will need tissue biopsy to further provide options. - AFP Pending Plan: - Discussion with Patient and daughter about findings of the MRI and they wish to not continue further invasive diagnostics and will plan for hospice care. This is reasonable in a picture of metastatic cancer most likely chlangio primary given her performance status and age. Doctor attests: I performed a history and physical examination of this patient, developed impression and plan of care, discussed with dictator. I agree with dictators note, documented as a scribe.
[2019-11-28] MEDS ORDERED: AMIODARONE 200 MG TAB PO STA (14:33)
--- NOTE | 2019-11-28 14:39 | P.PN ---
Subjective This is Lily Cortez PA-C scribing on behalf of Dr. Sharma The patient was interviewed and examined by Dr. Sharma HPI/interval history Patient is a 84-year-old female with a history of atrial fibrillation who presented with complaints of generalized weakness and body aches. She was found to be in atrial fibrillation with RVR. Chest CT shows no evidence for PE, underlying emphysematous change, mild bilateral alveolar edema and small bilateral pleural effusions, central obstructing intrahepatic mass, moderate to severe left-sided hydronephrosis. CT of the abdomen and pelvis confirms moderate to severe left-sided hydronephrosis, no obstructing stone clearly seen, cirrhotic liver with multifocal central neoplasm causing left-sided biliary dilatation. Oncology is following her. She underwent an MRI showing possible cholangiocarcinoma. Yesterday we added a low-dose of digoxin for rate control. She remains in atrial fibrillation with rates in the 100s and is still hypotensive. Dr. Sharma saw the patient in follow-up. She was lying flat comfortably in bed. Continues to deny any chest pain or shortness of breath. EXAMINATION She is afebrile, pulse in the 110s, respirations 16, blood pressure 87/57, oxygen saturation on 100% on room air Dr. Sharma examined the patient Lungs are clear to auscultation bilaterally Heart is irregular and tachycardic Extremities warm no edema REVIEW OF LABS, ECG WBC 9.3, hemoglobin 7.9, platelets 270, potassium 4.0, BUN 28, creatinine 0.78 IMPRESSION / ASSESSMENT: #1 complaints of generalized weakness and body aches #2 atrial fibrillation with RVR, rates in the 100s, anticoagulated with eliquis #3 shortness of breath, mild pulmonary edema and small left pleural effusions on chest CT, elevated BNP, possible mild CHF, clinically she is able to lie flat comfortably, denies any shortness of breath #4 recently diagnosed DVT, on anticoagulation with eliquis #5 left-sided hydronephrosis #6 hepatic mass concerning for malignancy #7 left lower lobe pneumonia, on antibiotics #8 anemia #9 abnormal TSH #10 history of pulmonary fibrosis PLAN: Echocardiogram has been done, still awaiting results Options are limited for rate control as she is hypotensive Stop digoxin and start low-dose amiodarone for rate control Continue anticoagulation Monitor LFTs Objective - Vital Signs Vital signs: Vital Signs Temp 98.1 F 11/27/19 17:20 Pulse 119 H 11/28/19 12:00 Resp 16 11/28/19 12:00 BP 87/57 11/28/19 12:00 Pulse Ox 100 11/28/19 12:00 Intake & Output 11/27/19 11/28/19 11/28/19 18:59 06:59 18:59 Intake Total 330 240 Balance 330 240 Weight 42 kg 41.6 kg Intake: Oral 330 240 Other: # Voids 1 2 # Bowel Movements 0 - Labs CBC & Chem 7: 11/28/19 12:01 11/28/19 06:00 Labs: Abnormal Lab Results - Last 24 Hours (Table) 11/26/19 11/28/19 11/28/19 Range/Units 14:55 06:00 12:01 RBC 2.31 L (3.80-5.40) m/uL Hgb 7.9 L (11.4-16.0) gm/dL Hct 25.7 L (34.0-46.0) % MCV 111.2 H (80.0-100.0) fL MCHC 30.9 L (31.0-37.0) g/dL RDW 17.3 H (11.5-15.5) % Neutrophils # 8.3 H (1.3-7.7) k/uL Lymphocytes # 0.4 L (1.0-4.8) k/uL Macrocytosis Marked A Chloride 108 H (98-107) mmol/L BUN 28 H (7-17) mg/dL Glucose 122 H (74-99) mg/dL Calcium 7.9 L (8.4-10.2) mg/dL AST 43 H (14-36) U/L Alkaline Phosphatase 196 H (38-126) U/L Total Protein 5.3 L (6.3-8.2) g/dL Total Protein (PEP) 4.8 L (6.2-8.2) g/dL Albumin 2.6 L (3.5-5.0) g/dL Free [place] LC, Quant 2.43 H (0.33-1.94) mg/dL Microbiology - Last 24 Hours (Table) 11/25/19 14:55 Blood Culture - Preliminary Blood No Growth after 48 hours 11/25/19 14:43 Urine Culture - Final Urine,Catheterized Klebsiella pneumoniae Escherichia coli
[2019-11-28 14:51] LABS: Albumin 2.53 g/dL (3.80-4.90); Gamma Globulin 0.63 g/dL (0.70-1.50)
[2019-11-28 16:59] LABS: % Iron Saturation 21.34 (12.00-45.00); Ferritin 364.5 ng/mL (10.0-291.0)
--- NOTE | 2019-11-28 18:03 | P.PN ---
Progress Note - Text Progress Note Date: 11/28/19 Chief Complaint: Weakness History of presenting complaint: ER physician notes: The patient is an 84 old female past medical history of atrial fibrillation and pulmonary fibrosis who presents to the emergency department with reported generalized weakness and diffuse body aches. History is provided by EMS who state that the patient was taken into [facility] Sunday [facility] She was evaluated for lower extremity swelling. S he was found to have a DVT in her left leg and was placed on antegrade patient. She also had a CT of her chest which was negative for PE. She was returned to [facility] with additional diagnosis of pneumonia and placed on antibiotics. She reports that she didn't like the way she was being treated at the facility and therefore left yesterday AGAINST MEDICAL ADVICE and went home. Family states th at she woke up this morning was warm weak and confused than normal. EMS report that the patient's baseline is the same as when they ran on her previously on Sunday. The patient is alert and oriented 3. Denies any trauma or falls. Admits to diffuse body aches which is chronic for her state she normally takes Tylenol for it. She does admit to feeling short of breath. The patient denies any chest pain, cough or hemoptysis. No abdominal pain. No changes in her bowel or bladder habits. There are no alleviating, precipitating or modifying factors. Today-tired. Eating some. Some shortness of breath. Did inform the patient about the large tumor mass in the liver and the family it has progressively sent the abdomen. And also very enlarged obstructive kidney. She understands that t his is cancerous or not biopsy proven. I did talk about hospice she is agreeable. Review of systems: Was done for constitutional, cardiovascular, GI, pulmonary. relevant finding as above Active Medications Acetaminophen (Tylenol Tab) 650 mg PO Q6HR PRN PRN Reason: Mild Pain or Fever > 100.5 Last Admin: 11/28/19 13:14 Dose: 650 mg Documented by: Albuterol/Ipratropium (Duoneb 0.5 Mg-3 Mg/3 Ml Soln) 3 ml INHALATION RT-Q4H PRN PRN Reason: Shortness Of Breath Amiodarone HCl (Cordarone) 200 mg PO DAILY SONYA Apixaban (Eliquis) 2.5 mg PO BID [facility] Last Admin: 11/28/19 08:36 Dose: 2.5 mg Documented by: Calcium Carbonate/Glycine (Tums) 1,000 mg PO Q4HR PRN PRN Reason: Dyspepsia Lactulose (Cephulac) 20 gm PO DAILY PRN PRN Reason: Constipation Magnesium Hydroxide (Milk Of Magnesia) 2,400 mg PO DAILY PRN PRN Reason: Constipation Melatonin (Melatonin) 3 mg PO HS PRN PRN Reason: Insomnia Last Admin: 11/27/19 20:07 Dose: 3 mg Documented by: Metoprolol Tartrate (Lopressor) 25 mg PO TID [facility] Last Admin: 11/28/19 17:38 Dose: 25 mg Documented by: Naloxone HCl (Narcan) 0.2 mg IV Q2M PRN PRN Reason: Opioid Reversal Ondansetron HCl (Zofran) 4 mg IVP Q8HR PRN PRN Reason: Nausea And Vomiting Sodium Biphosphate/Sodium Phosphate (Fleet Adult) 133 ml RECTAL ONCE PRN PRN Reason: Constipation Physical examination: VITAL SIGNS: Afebrile, 110, 18, 98/66, 96% on room air GENERAL: Sitting on bed, awake tired EYES: Pupils equal. Conjunctiva palel. HEENT: External appearance of nose and ears normal, oral cavity grossly normal. NECK: JVD not raised; masses not palpable. HEART: First and second heart sounds are normal; no edema. LUNGS: Respiratory rate normal; decreased breath sounds. ABDOMEN: Soft, nontender, liver spleen not palpable, no masses palpable. PSYCH: Answering simple questions MUSCULOSKELETAL: Evidence of OA especially in the hands INVESTIGATIONS, reviewed in the clinical context: White count 9.3 hemoglobin 7.9 potassium 4 creatinine 0.78 albumin 2.6 Liver MRI-large central hepatic mass poorly measured, concerning for cholangiocarcinoma with marked intra-and extrahepatic biliary ductal dilatation and central biliary stricture. Also suspicion for extrahepatic extension into the mesentery and was the hepatic flexure. Fistulization of the tube within the ball as possible. Numerous additional hepatic lesions. The scattered throughout. Severe left hydronephrosis. Aneurysmal dilatation of the descending aorta. Previous testing White count 9 hemoglobin 8.6 platelets 241 potassium 4.1 bun 41 creatinine 1.12 ProBNP 99550 albumin 2.7 TSH 7.9 UA positive for leukoesterase, WBC COVID-19 PCR-not detected Chest x-ray film personally reviewed by me-patchy infiltrates Computed tomography scan of the xgojh-awbs-ns-moderate diffuse cerebral atrophy Chest CTA to 5 cm changes, elevated left diaphragm compressive atelectasis no PE, significant pericardial effusion, cardiomegaly, moderate to severe left- sided hydronephrosis, central obstructing intrahepatic mass causing [id number] intrahepatic biliary dilatation. Assessment: -Cognitive impairment-underlying late onset Alzheimer's dementia -Elevated left hemidiaphragm -Significant pericardial effusion with cardiomegaly -Moderate to severe left-sided hydronephrosis, likely due to obstructive metastatic disease -Large hepatic mass with biliary dilation and metastatic disease to the mesentery and other parts of liver. -Acute UTI possibly cystitis -Moderate protein calorie malnutrition patient muscle mass and decrease of the low albumin -Acute on chronic congestive heart failure exacerbation, pending 2-D echo -Possible pneumonia , gram-negative organism, POA -Pulmonary fibrosis -Emphysema -Recent left leg DVT with no PE Plan: Discussed with the patient. Understands advance malignancy likely. Discussed hospice. Understands. Advance care planning: Also discussed the patient's. [id number] Alanis Eng. This is patient's power of civil litigation attorney. Telephone number. [phone] care was discussed in detail. She understands patient's poor function status. Other medical problems. An prognosis is poor. Has decided to proceed with hospice. She is interested in getting the patient to the hospice house in [place]. [facility] was contacted.. I did discuss the correctional case manager. CODE STATUS DO NOT RESUSCITATE. Total time spent for this about 25 minutes.
[2019-11-28] MEDS: MELATONIN 3 MG TABLET PO PRN (20:49)
[2019-11-29 05:25] LABS: Folate, Serum >24.0 ng/mL; LDH 447 U/L (120-246)
[2019-11-29 07:17] LABS: Anisocytosis Slight; Basophils % (A) 0 %; Eosinophils % (A) 0 %; HGB 7.2 gm/dL (11.4-16.0); Hypochromasia Marked; Lymphocytes # (A) 0.3 k/uL (1.0-4.8); Lymphocytes % (A) 4 %; MCH 34.1 pg (25.0-35.0); MCHC 29.9 g/dL (31.0-37.0); Macrocytosis Marked; Mean Platelet Volume 7.7; Monocytes # (A) 0.5 k/uL (0-1.0); Monocytes % (A) 5 %; Neutrophils # (A) 8.3 k/uL (1.3-7.7); Neutrophils % (A) 89 %; Platelet Count 227 k/uL (150-450); Poikilocytosis Slight; RDW 17.7 % (11.5-15.5); WBC 9.3 k/uL (3.8-10.6)
[2019-11-29 07:27] LABS: Albumin 2.4 g/dL (3.5-5.0); Calcium 8.3 mg/dL (8.4-10.2); Total Bilirubin 0.5 mg/dL (0.2-1.3)
[2019-11-29] MEDS: APIXABAN 2.5 MG TABLET PO SCH (08:16)
[2019-11-29 08:17] VITALS: BP 111/93; RESP 14; TEMP 96.9
[2019-11-29] MEDS: METOPROLOL TARTRATE 25 MG TAB PO SCH (08:17)
[2019-11-29 08:25] VITALS: PULSE 120
[2019-11-29] MEDS ORDERED: AMIODARONE 200 MG TAB PO SCH ×2 (09:00→21:00)
--- NOTE | 2019-11-29 10:02 | P.PN ---
Subjective Progress Note Date: 11/29/19 This is a 84-year-old female patient with history of A. fib who presented with complaints of generalized weakness and body aches. She was found to be in atrial fibrillation with rapid ventricular response. Computed tomography scan of the chest showed no evidence for PE with underlying emphysematous changes, bilateral alveolar edema and small bilateral effusions, central obstructing intrahepatic mass, moderate to severe left-sided hydronephrosis. Computed tomography scan of the abdomen and pelvis confirms moderate to severe left-sided hydronephrosis or stone clearly seen, cirrhotic liver with multifocal central neoplasm causing left sided biliary dilation. She is being followed by nephrology. MRI did show possible cholangiocarcinoma. Spelled initiated on low-dose digoxin for rate control and was started on amiodarone yesterday but ventricular rates remained poorly controlled. She does continue to have hypotension. Upon examination, patient is resting in bed in no acute distress. Labs today show a white cell count of 9.3, hemoglobin 7.2, hematocrit 24, platelet count 227, potassium 4.0, BUN 27 and creatinine 0.82. Objective - Vital Signs Vital signs: Vital Signs Temp 96.9 F L 11/29/19 08:00 Pulse 120 H 11/29/19 08:24 Resp 14 11/29/19 08:24 BP 111/93 11/29/19 08:00 Pulse Ox 97 11/29/19 08:24 Intake & Output 11/28/19 11/29/19 11/29/19 18:59 06:59 18:59 Intake Total 360 240 Balance 360 240 Weight 45 kg Intake: Oral 360 240 Other: # Voids 1 2 - Exam PHYSICAL EXAMINATION: HEENT: Head is atraumatic, normocephalic. Pupils equal, round. Neck is supple. There is no elevated jugular venous pressure. HEART EXAMINATION: Heart sounds irregular irregular, S1 and S2 with a systolic murmur, tachycardia noted CHEST EXAMINATION: Lungs are clear to auscultation. No chest wall tenderness is noted on palpation or with deep breathing. ABDOMEN: Soft, nontender. Bowel sounds are heard. No organomegaly noted. EXTREMITIES: 2+ peripheral pulses with evidence of 1+ peripheral edema and no calf tenderness noted. NEUROLOGIC patient is awake, alert and oriented x2. . - Labs CBC & Chem 7: 11/29/19 06:51 11/29/19 06:51 Labs: Abnormal Lab Results - Last 24 Hours (Table) 11/26/19 11/28/19 11/28/19 Range/Units 14:55 06:00 12:01 RBC 2.31 L (3.80-5.40) m/uL Hgb 7.9 L (11.4-16.0) gm/dL Hct 25.7 L (34.0-46.0) % MCV 111.2 H (80.0-100.0) fL MCHC 30.9 L (31.0-37.0) g/dL RDW 17.3 H (11.5-15.5) % Neutrophils # 8.3 H (1.3-7.7) k/uL Lymphocytes # 0.4 L (1.0-4.8) k/uL Macrocytosis Marked A Chloride 108 H (98-107) mmol/L BUN 28 H (7-17) mg/dL Glucose 122 H (74-99) mg/dL Calcium 7.9 L (8.4-10.2) mg/dL Iron 35 L (50-170) ug/dL TIBC 164 L (228-460) ug/dL Ferritin 364.5 H (10.0-291.0) ng/mL AST 43 H (14-36) U/L Alkaline Phosphatase 196 H (38-126) U/L Total Protein 5.3 L (6.3-8.2) g/dL Albumin 2.6 L (3.5-5.0) g/dL Albumin (PEP) 2.53 L (3.80-4.90) g/dL Wouoa-3-Flipcajlm 0.46 H (0.10-0.40) g/dL Beta Globulins 0.50 L (0.60-1.30) g/dL Gamma Globulins 0.63 L (0.70-1.50) g/dL Free Altura LC, Quant 2.43 H (0.33-1.94) mg/dL 11/29/19 11/29/19 Range/Units 06:51 06:51 RBC 2.10 L (3.80-5.40) m/uL Hgb 7.2 L (11.4-16.0) gm/dL Hct 24.0 L (34.0-46.0) % MCV 114.0 H (80.0-100.0) fL MCHC 29.9 L (31.0-37.0) g/dL RDW 17.7 H (11.5-15.5) % Neutrophils # 8.3 H (1.3-7.7) k/uL Lymphocytes # 0.3 L (1.0-4.8) k/uL Macrocytosis Marked A Chloride 109 H (98-107) mmol/L BUN 27 H (7-17) mg/dL Glucose (74-99) mg/dL Calcium 8.3 L (8.4-10.2) mg/dL Iron (50-170) ug/dL TIBC (228-460) ug/dL Ferritin (10.0-291.0) ng/mL AST (14-36) U/L Alkaline Phosphatase 224 H (38-126) U/L Total Protein 5.0 L (6.3-8.2) g/dL Albumin 2.4 L (3.5-5.0) g/dL Albumin (PEP) (3.80-4.90) g/dL Etqny-2-Nczrszamv (0.10-0.40) g/dL Beta Globulins (0.60-1.30) g/dL Gamma Globulins (0.70-1.50) g/dL Free Altura LC, Quant (0.33-1.94) mg/dL Microbiology - Last 24 Hours (Table) 11/25/19 14:55 Blood Culture - Preliminary Blood No Growth after 72 hours Assessment and Plan Assessment: #1 complaints of generalized weakness and body aches #2 atrial fibrillation with rapid ventricular response, rates in the low 100s to 120s, anticoagulated on Eliquis #3 mild pulmonary edema and small left pleural effusion on computed tomography scan, elevated BNP, possible mild CHF, clinically she is able to lie flat comfortably and denies any shortness of breath. #4 recently diagnosed DVT, anticoagulated on eliquis #5 left sided hydronephrosis #6 hepatic mass concerning for metastatic malignancy #7 left lower lobe pneumonia, on antibiotics #8 anemia Plan: From cardiology's perspective, we will increase amiodarone as heart rates are still poorly controlled and patient remains hypotensive at times. We will continue to follow the patient provide further recommendations accordingly. EGG BREAKING MACHINE OPERATOR note has been reviewed, I agree with a documented findings and plan of care. Patient was seen and examined.
--- NOTE | 2019-11-29 10:37 | P.DS ---
Providers Date of admission: 11/25/19 17:20 Attending physician: Jacobo Ortega Consults: 11/25/19 17:21 Consult Physician Urgent Consulting Provider: [facility] Consult Reason/Comments: aechf, afib with rvr Do you want consulting provider notified?: Yes 11/25/19 18:42 Consult Physician Urgent Consulting Provider: Marco Deluna Consult Reason/Comments: severe hydronephrosis Do you want consulting provider notified?: Yes 11/26/19 13:39 Consult Physician Routine Consulting Provider: Miki Miller Consult Reason/Comments: abnormal CT chest Do you want consulting provider notified?: Yes 11/26/19 21:08 Consult Physician Routine Consulting Provider: Bryan Hinkle Consult Reason/Comments: Metastatic disease Do you want consulting provider notified?: Yes Primary care physician: Jose Mendez [facility] Course: On-call hospitalist covering Dr. Ortega over the weekend Diagnoses: -Altered mental status and confusion -Large hepatic mass with biliary dilation and metastatic disease to the mesentery and other parts of liver. -Moderate to severe left-sided hydronephrosis, likely due to obstructive metastatic disease -Pericardial effusion -Moderate to severe protein calorie malnutrition -Cognitive impairment-underlying late onset Alzheimer's dementia -Elevated left hemidiaphragm -Recent left DVT on Eliquis -Possible underlying cirrhosis -Acute UTI possibly cystitis -Acute on chronic congestive heart failure exacerbation, pending 2-D echo -Possible pneumonia , gram-negative organism, POA -Pulmonary fibrosis -Emphysema -Severe Anemia -High TSH DO NOT RESUSCITATE order Hospital course: The patient is an 84 old female past medical history of atrial fibrillation and pulmonary fibrosis who presents to the emergency department with reported generalized weakness and diffuse body aches. History is provided by EMS who state that the patient was [facility] She was evaluated for lower extremity swelling. She was found to have a DVT in her left leg and was placed on anticoagulation. She also had a CT of her chest which was negative for PE. She was returned to [facility] with additional diagnosis of pneumonia and placed on antibiotics. She reports that she didn't like the way she was being treated at the facility and therefore left yesterday AGAINST MEDICAL ADVICE and went home. Family states that she woke up with being more confused than normal. EMS report that the patient's baseline is the same as when they ran on her previously on Sunday. The patient is alert and oriented 3. Denies any trauma or falls. Alpha- fetoprotein is 3.6 with an normal limits, hemoglobin 7.2. She is mildly hypertensive with a blood pressure 92/56-111/93 and heart rate 120-126. urologist evaluated the patient and recommended no surgery as patient has no abdominal pain and no significant infection with normal creatinine. Dr. Ortega informed the patient about the large tumor mass in the liver and the family it has progressively sent the abdomen. And also very enlarged obstructive kidney. She understands that this is possible cancerous and not biopsy proven. Yesterday to my colleague Dr. Ortega talked to the patient and family for hospice care and the patient and family are agreeable. Her hospice care has already been set up when I came this morning. This morning patient looks tired, lying in bed not in distress. Not in pain. She is cachectic and pale, Follow commands however answers by making a common sounds with yes and no. However because she is generally weak and tired she cannot talk. She keeps her are closed most of the time. Patient is already set up for hospice care and patient informed and she agrees to me. Problems and management plan were discussed with the patient and he verbalized understanding and acceptance Patient can be discharged home with hospice as her prognosis is very poor. Patient was instructed to follow up with PCP within one week and patient agrees -Gen: patient is a AAOx2-3, she follows commands but answers with humming sounds is has not no distress, She is cachectic and pale. Patient is very weak CVS: S1-S2, RRR, no murmur Lungs: B/L CTA, no wheezing -Abdomen: soft, mild abdominal distention, no tenderness, positive bowel sounds Extremity: no leg edema or induration Time spent more than 35 minutes Patient Condition at Discharge: Stable Plan - Discharge Summary Discharge Rx Participant: No New Discharge Prescriptions: New Lactulose [Cephulac] 20 gm PO DAILY PRN #0 ml PRN Reason: Constipation Amiodarone [Cordarone] 200 mg PO BID #60 tab Melatonin 3 mg PO HS PRN #15 tablet PRN Reason: Insomnia Magnesium Hydroxide [Milk of Magnesia Concentrate] 2,400 mg PO DAILY PRN #100 ml PRN Reason: Constipation Acetaminophen Tab [Tylenol] 650 mg PO Q6HR PRN tab PRN Reason: Mild Pain Or Fever > 100.5 Ondansetron HCl [Zofran] 4 mg PO Q8H PRN #25 tab PRN Reason: Nausea And Vomiting Continue Ipratropium-Albuterol Nebulize [Duoneb 0.5 mg-3 mg/3 ml Soln] 3 ml INHALATION RT-Q4H PRN PRN Reason: Shortness Of Breath Apixaban [Eliquis] 2.5 mg PO BID Metoprolol Tartrate 25 mg PO BID Tamsulosin HCl [Flomax] 0.4 mg PO DAILY Discontinued Potassium Chloride ER [K-Dur 10] 10 meq PO DAILY Diltiazem HCl [Diltiazem HCl 24Hr ER (CD)] 180 mg PO DAILY Furosemide [Lasix] 20 mg PO DAILY Discharge Medication List Apixaban [Eliquis] 2.5 mg PO BID 11/25/19 [History] Ipratropium-Albuterol Nebulize [Duoneb 0.5 mg-3 mg/3 ml Soln] 3 ml INHALATION RT-Q4H PRN 11/25/19 [History] Metoprolol Tartrate 25 mg PO BID 11/25/19 [History] Tamsulosin HCl [Flomax] 0.4 mg PO DAILY 11/25/19 [History] Acetaminophen Tab [Tylenol] 650 mg PO Q6HR PRN tab 11/29/19 [Rx] Amiodarone [Cordarone] 200 mg PO BID #60 tab 11/29/19 [Rx] Lactulose [Cephulac] 20 gm PO DAILY PRN #0 ml 11/29/19 [Rx] Magnesium Hydroxide [Milk of Magnesia Concentrate] 2,400 mg PO DAILY PRN #100 ml 11/29/19 [Rx] Melatonin 3 mg PO HS PRN #15 tablet 11/29/19 [Rx] Ondansetron HCl [Zofran] 4 mg PO Q8H PRN #25 tab 11/29/19 [Rx] Follow up Appointment(s)/Referral(s): Jose Mendez DO [Primary Care Provider] - 1-2 days
--- NOTE | 2019-11-29 12:48 | P.PN ---
Subjective Progress Note Date: 11/29/19 Principal diagnosis: The patient is seen today 11/29/2019 in follow-up on the selective care unit. She is resting comfortably in bed. Awake and alert in no acute distress. She i s maintaining O2 saturations in the 90s on room air. She's afebrile. Slightly tachycardic. Urine cultures positive for Klebsiella pneumoniae and E. coli. Blood culture shows no growth. White count 9.3. Hemoglobin 7.2. MCV 114. Sodium 140. Potassium 4.0. Chloride 109. Bicarb 24. Creatinine 0.82. Objective - Vital Signs Vital signs: Vital Signs Temp 96.9 F L 11/29/19 08:00 Pulse 120 H 11/29/19 08:24 Resp 14 11/29/19 08:24 BP 111/93 11/29/19 08:00 Pulse Ox 97 11/29/19 08:24 Intake & Output 11/28/19 11/29/19 11/29/19 18:59 06:59 18:59 Intake Total 360 240 Balance 360 240 Weight 45 kg Intake: Oral 360 240 Other: # Voids 1 2 - Exam GENERAL EXAM: Alert, very pleasant, frail, cachectic 84-year-old female patient, on room air comfortable in no apparent distress. HEAD: Normocephalic/atraumatic. EYES: Normal reaction of pupils, equal size. Conjunctiva pink, sclera white. NOSE: Clear with pink turbinates. THROAT: No erythema or exudates. NECK: No masses, no JVD, no thyroid enlargement, no adenopathy. CHEST: No chest wall deformity. Symmetrical expansion. LUNGS: Equal air entry with no crackles, wheeze, rhonchi or dullness. CVS: Regular rate and rhythm, normal S1 and S2, no gallops, no murmurs, no rubs ABDOMEN: Soft, nontender. No hepatosplenomegaly, normal bowel sounds, no guarding or rigidity. EXTREMITIES: No clubbing, no edema, no cyanosis, 2+ pulses and upper and lower extremities. MUSCULOSKELETAL: Muscle strength and tone normal. SPINE: No scoliosis or deformity SKIN: No rashes CENTRAL NERVOUS SYSTEM: No focal deficits, tone is normal in all 4 extremities. PSYCHIATRIC: Alert and oriented -3. Appropriate affect. Intact judgment and insight. - Labs CBC & Chem 7: 11/29/19 06:51 11/29/19 06:51 Labs: Abnormal Lab Results - Last 24 Hours (Table) 11/26/19 11/28/19 11/28/19 Range/Units 14:55 06:00 12:01 RBC 2.31 L (3.80-5.40) m/uL Hgb 7.9 L (11.4-16.0) gm/dL Hct 25.7 L (34.0-46.0) % MCV 111.2 H (80.0-100.0) fL MCHC 30.9 L (31.0-37.0) g/dL RDW 17.3 H (11.5-15.5) % Neutrophils # 8.3 H (1.3-7.7) k/uL Lymphocytes # 0.4 L (1.0-4.8) k/uL Macrocytosis Marked A Chloride (98-107) mmol/L BUN (7-17) mg/dL Calcium (8.4-10.2) mg/dL Iron 35 L (50-170) ug/dL TIBC 164 L (228-460) ug/dL Ferritin 364.5 H (10.0-291.0) ng/mL Alkaline Phosphatase (38-126) U/L Total Protein (6.3-8.2) g/dL Albumin (3.5-5.0) g/dL Albumin (PEP) 2.53 L (3.80-4.90) g/dL Jyrmi-8-Uunwlbpos 0.46 H (0.10-0.40) g/dL Beta Globulins 0.50 L (0.60-1.30) g/dL Gamma Globulins 0.63 L (0.70-1.50) g/dL 11/29/19 11/29/19 Range/Units 06:51 06:51 RBC 2.10 L (3.80-5.40) m/uL Hgb 7.2 L (11.4-16.0) gm/dL Hct 24.0 L (34.0-46.0) % MCV 114.0 H (80.0-100.0) fL MCHC 29.9 L (31.0-37.0) g/dL RDW 17.7 H (11.5-15.5) % Neutrophils # 8.3 H (1.3-7.7) k/uL Lymphocytes # 0.3 L (1.0-4.8) k/uL Macrocytosis Marked A Chloride 109 H (98-107) mmol/L BUN 27 H (7-17) mg/dL Calcium 8.3 L (8.4-10.2) mg/dL Iron (50-170) ug/dL TIBC (228-460) ug/dL Ferritin (10.0-291.0) ng/mL Alkaline Phosphatase 224 H (38-126) U/L Total Protein 5.0 L (6.3-8.2) g/dL Albumin 2.4 L (3.5-5.0) g/dL Albumin (PEP) (3.80-4.90) g/dL Lalry-4-Giziamwce (0.10-0.40) g/dL Beta Globulins (0.60-1.30) g/dL Gamma Globulins (0.70-1.50) g/dL Microbiology - Last 24 Hours (Table) 11/25/19 14:55 Blood Culture - Preliminary Blood No Growth after 72 hours Assessment and Plan Assessment: 1. Abnormal CT angiogram of the chest, showing emphysematous changes, possibility of underlying interstitial fibrosis and changes consistent with congestive heart failure #2. 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 Left-sided hydronephrosis #4. History of atrial fibrillation #5. History of left breast mastectomy for breast cancer #6. Lifelong nonsmoker #7. Recent diagnosis of left leg DVT #8. Recent history of pneumonia Plan: The patient was seen and evaluated by Dr. Paul Arias from the pulmonary standpoint Overall prognosis is quite poor May consider hospice/palliative care I, the cosigning physician, performed a history & physical examination of the patient. Lungs sounds are clear, diminished. Maintaining good O2 saturations in the 90s on room air. I discussed the assessment and plan of care with my nurse practitioner, Rosario Gilmore. I attest to the above note as dictated by her.
[2019-11-29 13:06] LABS: Methylmalonic Acid 0.42 umol/L (<0.40)
== END 2019-11-29 12:00 | disposition hospice, inpatient (51) | DRG 435 ==
LOC: EC 14:05 → 3SCARD 17:20 → 4SSUR 11-27 22:45 → 3SCARD 11-27 22:45
PROVIDERS: ADMIT Hospitalist; ATTEND Hospitalist
DX: C78.7 Secondary malignant neoplasm of liver and intrahepatic bile duct (principal); E43 Unspecified severe protein-calorie malnutrition; J15.6 Pneumonia due to other Gram-negative bacteria; C78.6 Secondary malignant neoplasm of retroperitoneum and peritoneum; I31.3 Pericardial effusion (noninflammatory); N30.00 Acute cystitis without hematuria; I48.20 Chronic atrial fibrillation, unspecified; I82.402 Acute embolism and thrombosis of unspecified deep veins of left lower extremity; N13.6 Pyonephrosis; R64 Cachexia; Z68.1 Body mass index [BMI] 19.9 or less, adult; C80.1 Malignant (primary) neoplasm, unspecified; D53.9 Nutritional anemia, unspecified; F02.80 Dementia in other diseases classified elsewhere, unspecified severity, without behavioral disturbance, psychotic disturbance, mood disturbance, and anxiety; G30.1 Alzheimer's disease with late onset; H91.90 Unspecified hearing loss, unspecified ear; Z20.828 Contact with and (suspected) exposure to other viral communicable diseases; B96.20 Unspecified Escherichia coli [E. coli] as the cause of diseases classified elsewhere; B96.1 Klebsiella pneumoniae [K. pneumoniae] as the cause of diseases classified elsewhere; I11.0 Hypertensive heart disease with heart failure; I50.9 Heart failure, unspecified; Z51.5 Encounter for palliative care; Z66 Do not resuscitate; J43.9 Emphysema, unspecified; J84.10 Pulmonary fibrosis, unspecified; K74.60 Unspecified cirrhosis of liver; Z79.01 Long term (current) use of anticoagulants; Z79.899 Other long term (current) drug therapy; Z85.3 Personal history of malignant neoplasm of breast; Z86.718 Personal history of other venous thrombosis and embolism; Z87.01 Personal history of pneumonia (recurrent); Z90.13 Acquired absence of bilateral breasts and nipples; J98.6 Disorders of diaphragm; R94.6 Abnormal results of thyroid function studies; G89.29 Other chronic pain; Z83.6 Family history of other diseases of the respiratory system
CPT/HCPCS: 36415; 51701; 70450; 71046; 71275; 74176; 74183; 80048; 80053; 81001; 82105; 82550; 82607; 82728; 82746; 82747; 83540; 83550; 83605; 83615; 83735; 83880; 83883; 83921; 84165; 84443; 84484; 85025; 85027; 85045; 85610; 85730; 86334; 87040; 87077; 87086; 87186; 87635; 93005; 93306; 96365; 96366; 96367; 96375; 99285